=== PATIENT | female | born 1960 | race Caucasian/White ===

== ENCOUNTER 2017-04-15 14:01 | Inpatient (IN) | payer SELFPAY ==
--- NOTE | 2017-04-15 14:58 | PDOC ---
*Physical Exam - Vital Signs Last Vital Signs Temp Pulse Resp BP Pulse Ox 98.3 F 91 H 20 135/80 96 04/15/17 14:07 04/15/17 14:07 04/15/17 14:07 04/15/17 14:07 04/15/17 14:07 ED Treatment Course - LABORATORY CBC & Chemistry Diagram: 04/15/17 15:58 04/15/17 15:58 Medical Decision Making - Medical Decision Making 04/15/17 19:18 Pt seen by the Advanced Practice Provider under my direct supervision Ancillary studies reviewed I agree with plan as outlined by the Advanced Practice Provider *DC/Admit/Observation/Transfer Diagnosis at time of Disposition: Left breast abscess
--- NOTE | 2017-04-15 15:14 | PDOC ---
History of Present Illness - General Chief Complaint: Redness To Affected Area Stated Complaint: INFECTION Time Seen by Provider: 04/15/17 14:32 History Source: Patient Exam Limitations: No Limitations - History of Present Illness Initial Comments: 04/15/17 15:11 56 yr female no past medical history pt has no PMD has had no health care in "many years" states pt presents today with left breast painful, red and swollen. pt denies fever or chills. Pt states both her parents have diabetes. Severity: Yes: moderate Past History - Past Medical History Allergies/Adverse Reactions: Allergies Allergy/AdvReac Type Severity Reaction Status Date / Time No Known Allergies Allergy Verified 04/15/17 14:10 Other medical history: NONE - Family Disease History Family Disease History: Diabetes: Father, Mother - Suicide/Smoking/Psychosocial Hx Smoking History: Never smoked Hx Alcohol Use: No Drug/Substance Use Hx: No Review of Systems - Review of Systems Able to Perform ROS?: Yes Is the patient limited Bulgarian proficient: No Constitutional: No: Symptoms Reported HEENTM: No: Symptoms Reported Respiratory: No: Symptoms reported Cardiac (ROS): No: Symptoms Reported ABD/GI: No: Symptoms Reported : No: Symptoms Reported Musculoskeletal: No: Symptoms Reported Integumentary: Yes: See HPI Neurological: No: Symptoms reported *Physical Exam - Vital Signs Last Vital Signs Temp Pulse Resp BP Pulse Ox 98.3 F 91 H 20 135/80 96 04/15/17 14:07 04/15/17 14:07 04/15/17 14:07 04/15/17 14:07 04/15/17 14:07 - Physical Exam General Appearance: Yes: Nourished, Appropriately Dressed HEENT: positive: EOMI, KIMMIE, Normal ENT Inspection, TMs Normal, Pharynx Normal Neck: positive: Supple Respiratory/Chest: positive: Lungs Clear, Normal Breath Sounds Cardiovascular: positive: Regular Rhythm, Regular Rate Gastrointestinal/Abdominal: positive: Normal Bowel Sounds, Soft Musculoskeletal: positive: Normal Inspection Extremity: positive: Normal Capillary Refill, Normal Inspection, Normal Range of Motion Integumentary: positive: Erythema, Swelling, Other (left breast with aereola red , swollen radiating up the breast surrounding the areola , warm to touch no nipple drainage) Neurologic: positive: Fully Oriented, Alert, Normal Mood/Affect, Normal Response , Motor Strength 5/5 Deep Tendon Reflexes: Tricep (L): 0 ED Treatment Course - LABORATORY CBC & Chemistry Diagram: 04/18/17 07:00 04/18/17 07:00 - RADIOLOGY Radiology Studies Ordered: Category Date Time Status BREAST US LEFT COMPLETE [US] Routine Ultrasound 04/15/17 14:58 Ordered - Consult/PCP Time Called: 18:03 Case discussed with personal care physician: Esteban Martinez Medical Decision Making - Medical Decision Making 04/15/17 15:17 cc: tender, red swollen breast for one week denies chills or fever, neg nvd neg appetite changes or weight loss will check labs, US breast IV fluids, antibiotics admission for breast cellulitus possible abscess case discussed with ER attending and agrees with plan 04/15/17 17:19 US report given by preliminary suggests large fluid collection to left breast. 04/15/17 18:03 04/15/17 18:19 paged as discussed with OFELIA Erickson 04/15/17 18:20 *DC/Admit/Observation/Transfer Diagnosis at time of Disposition: Left breast abscess - Discharge Dispostion Admit: Yes - Referrals
[2017-04-15] MEDS ORDERED: CLINDAMYCIN 600MG PREMIX IVPB 50 ML IVPB ONE ×2 (16:21→16:28)
[2017-04-15 16:22] LABS: BASOPHIL 0.6 % (0-2.0); EOSINOPHIL 1.2 % (0-4.5); MCH 29.4 pg (25.7-33.7); MCHC 33.7 g/dl (32.0-36.0); MEAN CELL VOLUME 87.1 fl (80-96); MEAN PLT VOLUME 11.1 fl (7.5-11.1); NEUTROPHILS 68.3 % (42.8-82.8); PLATELET COUNT 181 K/MM3 (134-434); RDW 12.5 % (11.6-15.6); WHITE BLOOD COUNT 7.9 K/mm3 (4.0-10.0)
[2017-04-15 16:50] LABS: ALBUMIN 3.8 g/dl (3.4-5.0); ALK PHOS 130 U/L (45-117); ANION GAP 6 (8-16); BILIRUBIN,TOTAL 0.5 mg/dL (0.2-1.0); CALCIUM 9.6 mg/dL (8.5-10.1); CO2 28 mmol/L (21-32); CREATININE 0.7 mg/dL (0.55-1.02); SGOT/AST 7 U/L (15-37); SGPT/ALT 22 U/L (12-78); TOT PROT 7.9 g/dl (6.4-8.2)
[2017-04-15 16:55] LABS: GLUCOSE,RANDOM 403 mg/dL (74-106)
[2017-04-15] MEDS ORDERED: SODIUM CHLORIDE 1,000 ML IV STA (16:57)
[2017-04-15] MEDS ORDERED: INSULIN REGULAR HUMAN 100 UNITS/ML *VIAL IVPUSH ONE (17:07)
--- NOTE | 2017-04-15 17:58 | HP ---
CHIEF COMPLAINT: Left breast pain PCP: none HISTORY OF PRESENT ILLNESS: 56 yo F with no significant pmhx presents with one week history of worsening breast pain and swelling. She states that approx 7 days prior to coming to ER she started with a small red induration on left breast. This slowly has expanded and become more red and tender. She describes intermittent sharp non radiating 8/10 left breast pain and swelling. Pain associated with expanding erythema. No alleviating factors. Aggravated by palpation. Has not seen a doctor for appox. 10 years.She also endorses increased urinary frequency and urgency as well bilateral foot pain. She denies fever, chills, trauma, or drainage. Denies CP,MIRAMONTES,SOB, abd. pain, N/V. ER course was notable for: (1)Breast US shows left breast shows large fluid collection (2)Hyperglycemia- glucose 403 (3) Recent Travel:denies PAST MEDICAL HISTORY: abnormal uterine bleeding PAST SURGICAL HISTORY:none Social History: Smoking:never Alcohol:denies Drugs: denies Family History: Both Parents (diabetes) Allergies No Known Allergies Allergy (Verified 04/15/17 14:10) HOME MEDICATIONS: REVIEW OF SYSTEMS CONSTITUTIONAL: Absent: fever, chills, diaphoresis, generalized weakness, malaise, loss of appetite, weight change HEENT: Absent: rhinorrhea, nasal congestion, throat pain, throat swelling, difficulty swallowing, mouth swelling, ear pain, eye pain, visual changes CARDIOVASCULAR: Absent: chest pain, syncope, palpitations, irregular heart rate, lightheadedness , peripheral edema RESPIRATORY: Absent: cough, shortness of breath, dyspnea with exertion, orthopnea, wheezing, stridor, hemoptysis GASTROINTESTINAL: Absent: abdominal pain, abdominal distension, nausea, vomiting, diarrhea, constipation, melena, hematochezia GENITOURINARY:Increased frequency, urgency Absent: dysuria, , hesitancy, hematuria, flank pain, genital pain MUSCULOSKELETAL: left breast pain. Absent: myalgia, arthralgia, joint swelling, back pain, neck pain SKIN: Absent: rash, itching, pallor HEMATOLOGIC/IMMUNOLOGIC: Absent: easy bleeding, easy bruising, lymphadenopathy, frequent infections ENDOCRINE: Absent: unexplained weight gain, unexplained weight loss, heat intolerance, cold intolerance NEUROLOGIC: Absent: headache, focal weakness or paresthesias, dizziness, unsteady gait, seizure, mental status changes, bladder or bowel incontinence PSYCHIATRIC: Absent: anxiety, depression, suicidal or homicidal ideation, hallucinations. PHYSICAL EXAMINATION Vital Signs - 24 hr 04/15/17 14:07 Temperature 98.3 F Pulse Rate 91 H Respiratory 20 Rate Blood Pressure 135/80 O2 Sat by Pulse 96 Oximetry (%) GENERAL: AAOx3, mild distress HEAD: NC/AT EYES: PERRLA,EOMI, sclera anicteric, conjunctiva clear. No lid lag. EARS, NOSE, THROAT:Dry mucous membranes. NECK:Supple, NO JVD LUNGS:CTAB. No wheezes, and no crackles. No accessory muscle use. HEART: tachycardic, normal S1 and S2, no m/g/r. ABDOMEN: Soft, nontender, not distended, normoactive bowel sounds, no guarding, no rebound, no masses. No hepatomegaly or splenomegaly. MUSCULOSKELETAL: Normal range of motion at all joints. No bony deformities or tenderness. No CVA tenderness. UPPER EXTREMITIES: 2+ pulses, warm, well-perfused. No cyanosis. No clubbing. No peripheral edema. LOWER EXTREMITIES: 2+ pulses, warm, well-perfused. No calf tenderness. No peripheral edema. NEUROLOGICAL: Cranial nerves II-XII intact. Normal speech. gait not observed. PSYCHIATRIC: Cooperative. Good eye contact. Appropriate mood and affect. SKIN: left breast with warmth, tenderness , induration and nipple retraction, large area of surrounding erythema 10x8 cm. Laboratory Results - last 24 hr 04/15/17 04/15/17 15:58 15:58 WBC 7.9 RBC 5.16 Hgb 15.2 Hct 45.0 MCV 87.1 MCH 29.4 MCHC 33.7 RDW 12.5 Plt Count 181 MPV 11.1 Neutrophils % 68.3 Lymphocytes % 21.7 Monocytes % 8.2 Eosinophils % 1.2 Basophils % 0.6 Sodium 131 L Potassium 3.8 Chloride 97 L Carbon Dioxide 28 Anion Gap 6 L BUN 10 Creatinine 0.7 Creat Clearance w eGFR > 60 Random Glucose 403 H* Calcium 9.6 Total Bilirubin 0.5 AST 7 L ALT 22 Alkaline Phosphatase 130 H Total Protein 7.9 Albumin 3.8 ASSESSMENT/PLAN: 56 yo F with no significant PMHx presents with left breast pain will be admitted to med/surg for cellulits and left breast abscess requiring IV abx. and drainage. Problem List - Problem (1) Left breast abscess Assessment/Plan: * Will admit to med/surg * Breast surgeon consulted for drainage. * Will continue with Clindamycin and Zosyn - consult ID. * Will need abscess fluid sent for C/S. * NPO after midnight * Coags and PTT/PT-INR * Type and screen (2) Cellulitis Assessment/Plan: * Continue IV ABx as above. * Consult ID (3) Hyperglycemia Assessment/Plan: * ADA diet. * NPO after midnight. * ISS ACHS * BGM ACHS * Hgb A1C pending. Visit type - Emergency Visit Emergency Visit: Yes ED Registration Date: 04/15/17 Care time: The patient presented to the Emergency Department on the above date and was hospitalized for further evaluation of their emergent condition. - New Patient This patient is new to me today: Yes Date on this admission: 04/17/17 - Critical Care Critical Care patient: No
[2017-04-15] MEDS ORDERED: INSULIN SLIDING SCALE (NOVOLOG) 1 VIAL SQ SCH (18:45)
--- NOTE | 2017-04-15 18:49 | PN ---
Teaching Attending Note Name of Resident: Jeffery Flanagan ATTENDING PHYSICIAN STATEMENT I saw and evaluated the patient. I reviewed the resident's note and discussed the case with the resident. I agree with the resident's findings and plan as documented. SUBJECTIVE:56yo F with no PMH presented with L breast swelling and erythema. pain is 8/10 worse on palpation. states it started as small area of erythema that has progressively worsened. denies any trauma to the breast or shaving the area, states never had similar symptoms in the past. has not seen a doctor in many years and never had a mammogram. also notes urinary frequency and urgency and intermittent tingling in her feet. denies CP, SOB, fever, chills, N/V/C/D OBJECTIVE: Last Vital Signs Temp Pulse Resp BP Pulse Ox 98.3 F 91 H 20 135/80 96 04/15/17 14:07 04/15/17 14:07 04/15/17 14:07 04/15/17 14:07 04/15/17 14:07 General NAD CV S1 S2 tachycardic Lungs CTA B/L no wheezing/rales/rhonchi Breast L breast with 2X2 abscess at 12oclock position tender no active drainage warm with surrounding erythema. +retracted nipple R breast nipple normal no nodules or lumps appreciated on R breast (unable to assess on L due to tenderness) HEENT no LN in axillae abdomen soft NT/ND ASSESSMENT AND PLAN: 56 yo F with no PMH presented with L breast tenderness and swelling 1. L breast abscess and surrounding erythema- medicine admission. received clinda in the ER. will add zosyn for broader coverage as pt is very likely diabetic. breast surgeon consulted for I&D. concern for malignancy as nipple is retracted, however this can just be from infection however pt will need mammogram after resolution of symptoms. pain control 2. Hyperglycemia- high suspicion for diabetes given symptoms. check A1c. start BGM, iss. diabetic teaching. will need to discuss in detail lifestyle changes and need for glycemic control 3. peripheral neuropathy- high suspicion for DM. start gabapentin 4. DVT ppx- start lovenox
[2017-04-15] MEDS: SODIUM CHLORIDE 1,000 ML IV SCH ×2 (19:01→23:10)
[2017-04-15] MEDS: PIPERACILLIN/TAZOB 3.375 GM 3.375 GM in DEXTROSE 5%-WATER - 50 ML IVPB SCH (19:01)
[2017-04-15 19:02] LABS: ALLENS TEST POSITIVE; ART PUNCT SITE RIGHT RADIAL; ARTERIAL BLD GAS O2 SATURATION 97.1 % (90-98.9); ARTERIAL BLOOD GAS BASE EXCESS 1.5 meq/l (-2-2); ARTERIAL BLOOD GAS HCO3 24.3 meq/L (22-26); ARTERIAL BLOOD GAS PO2 81.3 mmHg (80-100); ARTERIAL BLOOD GAS pH 7.47 (7.35-7.45); LPM/O2% ROOM AIR; PT. ON O2? NO
[2017-04-15 19:04] LABS: METHEMOGLOBIN 0.4 % (0.4-1.5)
--- NOTE | 2017-04-15 21:22 | HP ---
CHIEF COMPLAINT: left breast pain PCP: none HISTORY OF PRESENT ILLNESS: The patient is a 56 yo f w/ no significant PMH who presents w/ 1 week history of worsening left breast pain, redness and swelling. The patient states that 7 days prior to admission, she noticed a "small red dot" on her left breast. Over the course of the week, the dot grew larger and more indurated and tender. The patient endorses a sharp, non radiating, 8/10 left breast pain associated with worsening erythema and swelling which expanded over time. The pain is worse on palpation and has no alleviating factors. In addition to this, the patient also complains of worsening urinary urgency and frequency as well as bilateral foot pain. The patient has not seen an MD in 10 years. The patient denies chest pain , shortness of breath, fever, chills, N/V/D, abdominal pain, breast trauma or drainage from the affected site. ER course was notable for: (1) LT breast US showing 5cm by 2 cm fluid collection (2) hyperglycemia to 403 (3) Recent Travel: denies PAST MEDICAL HISTORY: -abnormal uterine bleeding PAST SURGICAL HISTORY: Social History: Smoking: never Alcohol: denies Drugs: denies Family History: Diabetes in both parents Allergies No Known Allergies Allergy (Verified 04/15/17 14:10) HOME MEDICATIONS: REVIEW OF SYSTEMS CONSTITUTIONAL: Absent: fever, chills, diaphoresis, generalized weakness, malaise, loss of appetite, weight change HEENT: Absent: rhinorrhea, nasal congestion, throat pain, throat swelling, difficulty swallowing, mouth swelling, ear pain, eye pain, visual changes CARDIOVASCULAR: Absent: chest pain, syncope, palpitations, irregular heart rate, lightheadedness , peripheral edema RESPIRATORY: Absent: cough, shortness of breath, dyspnea with exertion, orthopnea, wheezing, stridor, hemoptysis GASTROINTESTINAL: Absent: abdominal pain, abdominal distension, nausea, vomiting, diarrhea, constipation, melena, hematochezia GENITOURINARY: urinary urgency and frequency Absent: dysuria, hesitancy, hematuria, flank pain, genital pain MUSCULOSKELETAL: LT breast pain Absent: myalgia, arthralgia, joint swelling, back pain, neck pain SKIN: Absent: rash, itching, pallor HEMATOLOGIC/IMMUNOLOGIC: Absent: easy bleeding, easy bruising, lymphadenopathy, frequent infections ENDOCRINE: Absent: unexplained weight gain, unexplained weight loss, heat intolerance, cold intolerance NEUROLOGIC: Absent: headache, focal weakness or paresthesias, dizziness, unsteady gait, seizure, mental status changes, bladder or bowel incontinence PSYCHIATRIC: Absent: anxiety, depression, suicidal or homicidal ideation, hallucinations. PHYSICAL EXAMINATION GENERAL: Awake, alert, and fully oriented, in no acute distress. HEAD: Normal with no signs of trauma. EYES: Pupils equal, round and reactive to light, extraocular movements intact, sclera anicteric, conjunctiva clear. No lid lag. NECK: Normal range of motion, supple, no JVD. LUNGS: Breath sounds equal, clear to auscultation bilaterally. No wheezes, and no crackles. No accessory muscle use. HEART: Regular rate and rhythm, normal S1 and S2 without murmur, rub or gallop. ABDOMEN: Soft, nontender, not distended, normoactive bowel sounds, no guarding, no rebound, no masses. No hepatomegaly or splenomegaly. MUSCULOSKELETAL: Normal range of motion at all joints. No bony deformities or tenderness. No CVA tenderness. UPPER EXTREMITIES: 2+ pulses, warm, well-perfused. No cyanosis. No clubbing. No peripheral edema. LOWER EXTREMITIES: 2+ pulses, warm, well-perfused. No calf tenderness. No peripheral edema. NEUROLOGICAL: Cranial nerves II-XII intact. Normal speech. Normal gait. PSYCHIATRIC: Cooperative. Good eye contact. Appropriate mood and affect. SKIN: Left breast with large area (10x8cm) which is firm and indurated. Area is warm and erythematous. Nipple retraction present. Right breast WNL Laboratory Results - last 24 hr 04/15/17 04/15/17 18:50 18:50 Puncture Site Right radial ABG pH 7.47 H ABG pCO2 at Pt Temp 34.2 L ABG pO2 at Pt Temp 81.3 ABG HCO3 24.3 ABG O2 Sat (Measured) 97.1 ABG O2 Content 18.3 ABG Base Excess 1.5 Deepak Test Positive Carboxyhemoglobin 1.6 Methemoglobin 0.4 Oxygen Flow Rate Room air PEEP 0.0 ASSESSMENT/PLAN: This is a 56 yo f w/ no significant PMH who comes to the ED c/o left breast erythema and swelling for the past 1 week. #Left breast abscess w/ associated cellulitis -Breast surgeon consult for possible drainage -IV zosyn 3.375 Q8H and clindamycin 600mg Q6h -BCX pending -will obtain wound cx on drainage -NPO after midnight -IVF -ID consult -1mg morphine Q4 PRN pain -AM CBC, CMP, MAG, PHOS, coags, type and screen #hyperglycemia likely 2/2 uncontrolled DM -AM HbA1c -BGM ACHS -ISS ACHS #b/l foot pain likely 2/2 diabetic peripheral neuropathy -gabapentin 100mg TID -no swelling, erythema of legs #FEN -NS @ 100 -monitor lytes -diabetic diet, NPO past midnight #Prophylaxsis -SCDs -no GI prophy indicated at this time #dispo -admitted to med-surg for IV ABX Problem List - Problem (1) Cellulitis Code(s): L03.90 - CELLULITIS, UNSPECIFIED Qualifiers: Site of cellulitis: other site Qualified Code(s): L03.818 - Cellulitis of other sites (2) Hyperglycemia Code(s): R73.9 - HYPERGLYCEMIA, UNSPECIFIED (3) Left breast abscess Code(s): N61.1 - ABSCESS OF THE BREAST AND NIPPLE Visit type - Emergency Visit Emergency Visit: Yes ED Registration Date: 04/15/17 Care time: The patient presented to the Emergency Department on the above date and was hospitalized for further evaluation of their emergent condition. - New Patient This patient is new to me today: Yes Date on this admission: 04/15/17 - Critical Care Critical Care patient: No
[2017-04-15] MEDS: GABAPENTIN 100 MG CAPSULE (FP) PO SCH (23:08)
[2017-04-15] MEDS: CLINDAMYCIN 600MG PREMIX IVPB 50 ML IVPB SCH (23:08)
[2017-04-15 23:38] VITALS: BMI 28.8
[2017-04-16] MEDS ORDERED: PIPERACILLIN/TAZOBACTAM 3.375 GM VIAL IVPB ONE (02:09)
[2017-04-16] MEDS ORDERED: DEXTROSE 5%-WATER - 50 ML IVPB ONE (02:10)
[2017-04-16] MEDS: PIPERACILLIN/TAZOB 3.375 GM 3.375 GM in DEXTROSE 5%-WATER - 50 ML IVPB SCH (02:20)
[2017-04-16] MEDS: CLINDAMYCIN 600MG PREMIX IVPB 50 ML IVPB SCH ×2 (03:08→09:54)
[2017-04-16] MEDS: GABAPENTIN 100 MG CAPSULE (FP) PO SCH ×3 (06:04→21:16)
[2017-04-16] MEDS: INSULIN SLIDING SCALE (NOVOLOG) 1 VIAL SQ SCH ×6 (06:04→21:17)
[2017-04-16 09:01] LABS: BASOPHIL 0.5 % (0-2.0); EOSINOPHIL 1.4 % (0-4.5); MCH 29.2 pg (25.7-33.7); MCHC 33.7 g/dl (32.0-36.0); MEAN CELL VOLUME 86.6 fl (80-96); MEAN PLT VOLUME 10.1 fl (7.5-11.1); NEUTROPHILS 68.9 % (42.8-82.8); PLATELET COUNT 141 K/MM3 (134-434); RDW 12.3 % (11.6-15.6); WHITE BLOOD COUNT 7.1 K/mm3 (4.0-10.0)
[2017-04-16 09:24] LABS: INR 1.12 (0.82-1.09); PROTHROMBIN TIME (PATIENT) 12.3 SEC (9.98-11.88)
[2017-04-16 09:27] LABS: ACTIVATED PTT 27.5 SECONDS (26.9-34.4)
[2017-04-16 09:32] LABS: ALBUMIN 2.8 g/dl (3.4-5.0); ALK PHOS 99 U/L (45-117); ANION GAP 7 (8-16); BILIRUBIN,TOTAL 0.6 mg/dL (0.2-1.0); CALCIUM 8.3 mg/dL (8.5-10.1); CO2 26 mmol/L (21-32); CREATININE 0.5 mg/dL (0.55-1.02); GLUCOSE,RANDOM 282 mg/dL (74-106); MAGNESIUM 1.6 mg/dL (1.8-2.4); PHOSPHOROUS 2.5 mg/dL (2.5-4.9); SGOT/AST 11 U/L (15-37); SGPT/ALT 18 U/L (12-78); TOT PROT 6.1 g/dl (6.4-8.2)
--- NOTE | 2017-04-16 10:27 | EKG ---
Test Reason : Blood Pressure : / mmHG Vent. Rate : 090 BPM Atrial Rate : 090 BPM P-R Int : 186 ms QRS Dur : 134 ms QT Int : 414 ms P-R-T Axes : 055 -13 009 degrees QTc Int : 506 ms NORMAL SINUS RHYTHM RIGHT BUNDLE BRANCH BLOCK ABNORMAL ECG NO PREVIOUS ECGS AVAILABLE Confirmed by JUAN JOSE SCHMITT, JERAD ([id number]) on 04/16/2017 10:26:30 AM Referred By: Confirmed By:JERAD INGRAM MD
[2017-04-16] MEDS: morphine CARPU-JECT 2 MG/1 ML DISP.SYRIN IVPUSH PRN ×2 (10:49→21:15)
[2017-04-16] MEDS: SODIUM CHLORIDE 1,000 ML IV SCH ×2 (10:53→19:27)
--- NOTE | 2017-04-16 12:52 | PN ---
Progress Note (short form) - Note Progress Note: ID Full note dictated Microbiology Selected Entries 04/16/17 04/16/17 08:05 10:33 Temperature 98.0 F Pulse Rate 72 Respiratory 16 Rate Blood Pressure 132/77 Laboratory Tests 04/15/17 04/16/17 04/16/17 15:58 07:30 07:30 WBC 7.1 RBC 4.59 Hct 39.8 Plt Count 181 141 D BUN 8 Creatinine 0.5 L D Total Protein 6.1 L D Albumin 2.8 L D Assessment New onset DM witah left breast cellulitis with abscess Plan Needs surgery Vancomycn and Zosyn ESr CRP Lorene SCHMITT Problem List - Problems (1) Left breast abscess Code(s): N61.1 - ABSCESS OF THE BREAST AND NIPPLE (2) Diabetes 1.5, managed as type 2 Code(s): E10.9 - TYPE 1 DIABETES MELLITUS WITHOUT COMPLICATIONS
[2017-04-16] MEDS ORDERED: PIPERACILLIN/TAZOBACTAM 4.5 GM VIAL IVPB ONE ×2 (13:16→17:01)
[2017-04-16] MEDS ORDERED: DEXTROSE 5%-WATER 100 ML IVPB ONE ×2 (13:16→17:02)
[2017-04-16] MEDS: PIPERACILLIN/TAZOB 4.5 GM 4.5 GM in DEXTROSE 5%-WATER 100 ML IVPB SCH ×2 (13:28→17:10)
--- NOTE | 2017-04-16 13:35 | CONS ---
INFECTIOUS DISEASE CONSULTATION DATE OF CONSULTATION: DATE OF DICTATION: 04/16/2017 HISTORY OF PRESENT ILLNESS: This is a 56-year-old [place]er female who was admitted with a 1-week history of progressive worsening left breast pain. It started out as a pimple but became increasingly larger in size and more red and tender over the last week. She denied any preceding history of trauma and has no prior medical history, noting only that on her admission now her blood sugar was 403. She has not been to a doctor for any reason in many years. She has no fever and no chills and denies abdominal pain or other systemic complaints. The ultrasound shows a large breast fluid collection. She is currently on insulin, and I am asked to see her for antibiotic treatment. SOCIAL HISTORY: She denies smoking, alcohol, and HIV status unknown. She is , living in the [place] for many years. FAMILY HISTORY AND REVIEW OF SYSTEMS: Reviewed and noncontributory. PHYSICAL EXAMINATION: General: She was an alert woman in no acute distress. Vital Signs: The temperature was 98, blood pressure 132/77, pulse 78, respirations 16. Neck: Supple. Lungs: Clear to P&A. Heart: S1, S2. Regular rhythm without murmur. Abdomen: Soft, nontender, without hepatosplenomegaly. Chest: Revealed a large breast fluctuant mass involving the superior aspect of the nipple with extending erythema into the left breast, tenderness to touch with a suggestion of fluctuance. DIAGNOSTIC DATA: The white count is 7.9, hemoglobin 15.2, platelets of 181. INR 1.12. BUN 8, creatinine 0.5. Hemoglobin A1c of 13. Total protein 6.1. Albumin 2.8. Ultrasound of the breast was reviewed, dated April 15, showing a complex fluid collection representing abscess in the left breast. ASSESSMENT: New-onset diabetes in this 56-year-old female with large left breast abscess; etiology and origin unclear. Needs to be empirically treated with broad-spectrum antibiotics to include not only Staphylococcus aureus methicillin-resistant Staphylococcus aureus but gram-negative rods and anaerobes aswell. Given the acuteness of the abscess, tuberculosis of the breast would seem much less likely. We will empirically treat with vancomycin and Zosyn. Obtain an HIV test, CRP, and await surgical consultation for anticipated surgical drainage of the abscess. FERNANDO DIAZ M.D. RAMSEY/[id number] MTDD
[2017-04-16 14:51] LABS: HIV 1 & 2 AB NEGATIVE; HIV 1 AGp24 NEGATIVE
[2017-04-16] MEDS ORDERED: PT OWN MED DRAWER 7, Y5N ONE (14:57)
[2017-04-16] MEDS: VANCOMYCIN 1,250 MG in DEXTROSE 5%-WATER - 250 ML IVPB SCH ×2 (15:03→21:16)
--- NOTE | 2017-04-16 15:55 | CONSULT ---
- Consultation REQUESTING PROVIDER: Dr. Sahu CONSULT REQUEST: We have been asked to surgically evaluate this patient for left breast abscess. PCP:Lisseth Kerns HISTORY OF PRESENT ILLNESS: The patient is a 56 yo female who presented to the ER yesterday with complaints of pain/redness to her left breast. She denies any trauma and states that she noticed a bump several days ago and it became red. No fever/chills. She doesn't complete monthly breast exams and her last mammogram was in 2008 and was benign. Overall the breast is less tender, she denies and nipple discharge(bloody or non-bloody)/changes to her skin tissue, axillary pain. PMHx: denies PSHx: denies Allergies Allergy/AdvReac Type Severity Reaction Status Date / Time No Known Allergies Allergy Verified 04/15/17 14:10 REVIEW OF SYSTEMS: CONSTITUTIONAL: Absent: fever, chills CARDIOVASCULAR: Absent: chest pain, palpitations, RI RESPIRATORY: Absent: cough, shortness of breath GASTROINTESTINAL: Absent: abdominal pain, melena GENITOURINARY: Absent: dysuria, hematuria, UTI MUSCULOSKELETAL: Absent: joint swelling, back pain, neck pain SKIN: Absent: changes to breast tissue until last week HEMATOLOGIC/IMMUNOLOGIC: Absent: easy bleeding, easy bruising, lymphadenopathy NEUROLOGIC: Absent: headache,, seizure Present: left toe tingling, no history of ulcers PHYSICAL EXAM: GENERAL: Awake, alert, and fully oriented, in no acute distress. HEAD: Normal with no signs of trauma. EYES: sclera anicteric, conjunctiva clear. NECK: supple without lymphadenopathy. LUNGS: Clear to auscultation bilat anteriorly. No wheezes, and no crackles. No accessory muscle use. HEART: Regular rate and rhythm. No murmurs ABDOMEN: Soft, nontender, not distended. BREAST: Right breast, no palpable masses, no nipple retraction/discharge. No Axillay LAD. Left breast, fluctuant area 12 o'clock position 3x3 cm superior to the nipple which is tender. Erythema surrounding the left breast, No axillary LAD. MUSCULOSKELETAL: No bony deformities or tenderness. No CVA tenderness. UPPER EXTREMITIES: 2+ pulses, warm, well-perfused. No cyanosis. Cap refill <2 seconds. No peripheral edema. LOWER EXTREMITIES: 2+ pulses, warm, well-perfused. No calf tenderness. No peripheral edema. NEUROLOGICAL: Normal speech, gait not observed. PSYCH: Cooperative. Good eye contact. SKIN: Warm, dry, normal turgor. Vital Signs Temperature 98.1 F 04/16/17 14:12 Pulse Rate 77 04/16/17 14:12 Respiratory Rate 18 04/16/17 14:12 Blood Pressure 122/70 04/16/17 14:12 O2 Sat by Pulse Oximetry (%) 96 04/16/17 10:33 Lab Results WBC 7.1 K/mm3 (4.0-10.0) 04/16/17 07:30 RBC 4.59 M/mm3 (3.60-5.2) 04/16/17 07:30 Hgb 13.4 GM/dL (10.7-15.3) D 04/16/17 07:30 Hct 39.8 % (32.4-45.2) 04/16/17 07:30 MCV 86.6 fl (80-96) 04/16/17 07:30 MCHC 33.7 g/dl (32.0-36.0) 04/16/17 07:30 RDW 12.3 % (11.6-15.6) 04/16/17 07:30 Plt Count 141 K/MM3 (134-434) D 04/16/17 07:30 Sodium 136 mmol/L (136-145) 04/16/17 07:30 Potassium 3.7 mmol/L (3.5-5.1) 04/16/17 07:30 Chloride 103 mmol/L (98-107) 04/16/17 07:30 Carbon Dioxide 26 mmol/L (21-32) 04/16/17 07:30 Anion Gap 7 (8-16) L 04/16/17 07:30 BUN 8 mg/dL (7-18) 04/16/17 07:30 Creatinine 0.5 mg/dL (0.55-1.02) L D 04/16/17 07:30 Random Glucose 282 mg/dL (74-106) H D 04/16/17 07:30 Calcium 8.3 mg/dL (8.5-10.1) L 04/16/17 07:30 Blood Type A NEGATIVE 04/16/17 11:35 Antibody Screen Negative 04/16/17 07:30 INR 1.12 (0.82-1.09) 04/16/17 07:30 US: left breast with 6 x 2 x 5 cm collection/abscess in the 12 o clock position Microbiology Blood cultures pending x2 Laboratory Tests 04/16/17 04/16/17 07:30 13:50 Hemoglobin A1c % 13.0 H HIV 1&2 Antibody Screen Negative HIV P24 Antigen Negative Problem List - Problems (1) Left breast abscess Assessment/Plan: 56 yo female with new onset diabetes and left breast abscess Continue IV abx as per ID, she remains afebrile with a normal WBC but there is an area of fluctuance clinically and a collection on US. The patient would benefit from a surgical I&D. Her care was D/w Dr. Sahu and she is scheduled for a I&D in the am. Npo after midnight Code(s): N61.1 - ABSCESS OF THE BREAST AND NIPPLE Visit type - Case Type Case Type: ED Admission - Emergency Emergency Visit: Yes ED Registration Date: 04/15/17 Care time: The patient presented to the Emergency Department on the above date and was hospitalized for further evaluation of their emergent condition. - New patient This patient is new to me today: Yes Date on this admission: 04/16/17 - Critical Care Critical Care patient: No
--- NOTE | 2017-04-16 16:27 | PN ---
Teaching Attending Note Name of Resident: Jeffery Flanagan ATTENDING PHYSICIAN STATEMENT I saw and evaluated the patient. I reviewed the resident's note and discussed the case with the resident. I agree with the resident's findings and plan as documented. SUBJECTIVE:states pain has improved. states no draining from abscess. denies CP , SOB, fever, chills, N/V/C/D OBJECTIVE: Last Vital Signs Temp Pulse Resp BP Pulse Ox 98.1 F 77 18 122/70 96 04/16/17 14:12 04/16/17 14:12 04/16/17 14:12 04/16/17 14:12 04/16/17 10:33 General NAD Breast L breast with 2X2 abscess at 12oclock position tender no active drainage warm with surrounding erythema. +retracted nipple ASSESSMENT AND PLAN: 56 yo F with no PMH presented with L breast tenderness and swelling 1. L breast abscess and surrounding erythema-clinically improved. some retraction in erythema. u/s showing 5.6x2.1x4.7 abscess in L breast. NPO for I& D in the OR in the AM by general surgeon. (breast surgeon not available). abx switched to vanco/zosyn day 1. check vanco trough prior to next dose. will need mammogram as outpatient. pain control 2. New onset DM- A1c 13. diabetic teaching of insulin and BGM. pulpwood cutter consult. counseled on risks of uncontrolled DM including but not limited to early heart disease, loss of vision, kidney disease leading to HD and uncontrolled infections. will need insulin. will hold long acting insulin tonight as NPO and is insulin naive. cont BGM and iss. 3. Obesity- BMI 28 4. peripheral neuropathy- likely due to DM. gabapentin 100mg TID 5. DVT ppx- lovenox
--- NOTE | 2017-04-16 17:41 | PN ---
Physical Exam: SUBJECTIVE: Patient seen and examined at bedside. Patient states she feels better and the erythema and swelling around her breast has gone down. No new complaints. OBJECTIVE: Vital Signs Period Temp Pulse Resp BP Sys/Ward Pulse Ox Last 24 Hr 98 F-98.5 F 72-96 16-20 122-152/70-83 94-98 GENERAL: The patient is awake, alert, and fully oriented, in no acute distress. HEAD: Normal with no signs of trauma. EYES: extraocular movements intact, sclera anicteric, conjunctiva clear. No ptosis. NECK: Trachea midline, full range of motion, supple. LUNGS: Breath sounds equal, clear to auscultation bilaterally, no wheezes, no crackles, no accessory muscle use. HEART: Regular rate and rhythm, S1, S2 without murmur, rub or gallop. ABDOMEN: Soft, nontender, nondistended, normoactive bowel sounds, no guarding, no rebound. EXTREMITIES: 2+ pulses, warm, well-perfused, no edema. NEUROLOGICAL: Cranial nerves II through X grossly intact. Normal speech, gait not observed. PSYCH: Normal mood, normal affect. SKIN: Warm, dry, normal turgor. The erythema and swelling of the left breast is improved since yesterday Laboratory Results - last 24 hr 04/15/17 04/15/17 04/15/17 18:50 18:50 21:40 WBC RBC Hgb Hct MCV MCH MCHC RDW Plt Count MPV Neutrophils % Lymphocytes % Monocytes % Eosinophils % Basophils % PT with INR INR PTT (Actin FS) Puncture Site Right radial ABG pH 7.47 H ABG pCO2 at Pt Temp 34.2 L ABG pO2 at Pt Temp 81.3 ABG HCO3 24.3 ABG O2 Sat (Measured) 97.1 ABG O2 Content 18.3 ABG Base Excess 1.5 Deepak Test Positive Carboxyhemoglobin 1.6 Methemoglobin 0.4 Oxygen Flow Rate Room air PEEP 0.0 Sodium Potassium Chloride Carbon Dioxide Anion Gap BUN Creatinine Creat Clearance w eGFR POC Glucometer [phone] Random Glucose Hemoglobin A1c % Calcium Phosphorus Magnesium Total Bilirubin AST ALT Alkaline Phosphatase C-Reactive Protein Total Protein Albumin HIV 1&2 Antibody Screen HIV P24 Antigen Blood Type Antibody Screen 04/15/17 04/16/17 04/16/17 22:56 06:01 07:30 WBC 7.1 RBC 4.59 Hgb 13.4 D Hct 39.8 MCV 86.6 MCH 29.2 MCHC 33.7 RDW 12.3 Plt Count 141 D MPV 10.1 Neutrophils % 68.9 Lymphocytes % 21.3 Monocytes % 7.9 Eosinophils % 1.4 Basophils % 0.5 PT with INR INR PTT (Actin FS) Puncture Site ABG pH ABG pCO2 at Pt Temp ABG pO2 at Pt Temp ABG HCO3 ABG O2 Sat (Measured) ABG O2 Content ABG Base Excess Deepak Test Carboxyhemoglobin Methemoglobin Oxygen Flow Rate PEEP Sodium Potassium Chloride Carbon Dioxide Anion Gap BUN Creatinine Creat Clearance w eGFR POC Glucometer 277 234 Random Glucose Hemoglobin A1c % Calcium Phosphorus Magnesium Total Bilirubin AST ALT Alkaline Phosphatase C-Reactive Protein Total Protein Albumin HIV 1&2 Antibody Screen HIV P24 Antigen Blood Type Antibody Screen 04/16/17 04/16/17 04/16/17 07:30 07:30 07:30 WBC RBC Hgb Hct MCV MCH MCHC RDW Plt Count MPV Neutrophils % Lymphocytes % Monocytes % Eosinophils % Basophils % PT with INR 12.30 H INR 1.12 PTT (Actin FS) 27.5 Puncture Site ABG pH ABG pCO2 at Pt Temp ABG pO2 at Pt Temp ABG HCO3 ABG O2 Sat (Measured) ABG O2 Content ABG Base Excess Deepak Test Carboxyhemoglobin Methemoglobin Oxygen Flow Rate PEEP Sodium 136 Potassium 3.7 Chloride 103 Carbon Dioxide 26 Anion Gap 7 L BUN 8 Creatinine 0.5 L D Creat Clearance w eGFR > 60 POC Glucometer Random Glucose 282 H D Hemoglobin A1c % Calcium 8.3 L Phosphorus 2.5 Magnesium 1.6 L Total Bilirubin 0.6 AST 11 L D ALT 18 Alkaline Phosphatase 99 D C-Reactive Protein Total Protein 6.1 L D Albumin 2.8 L D HIV 1&2 Antibody Screen HIV P24 Antigen Blood Type A NEGATIVE Antibody Screen Negative 04/16/17 04/16/17 04/16/17 07:30 11:07 11:35 WBC RBC Hgb Hct MCV MCH MCHC RDW Plt Count MPV Neutrophils % Lymphocytes % Monocytes % Eosinophils % Basophils % PT with INR INR PTT (Actin FS) Puncture Site ABG pH ABG pCO2 at Pt Temp ABG pO2 at Pt Temp ABG HCO3 ABG O2 Sat (Measured) ABG O2 Content ABG Base Excess Deepak Test Carboxyhemoglobin Methemoglobin Oxygen Flow Rate PEEP Sodium Potassium Chloride Carbon Dioxide Anion Gap BUN Creatinine Creat Clearance w eGFR POC Glucometer 243 Random Glucose Hemoglobin A1c % 13.0 H Calcium Phosphorus Magnesium Total Bilirubin AST ALT Alkaline Phosphatase C-Reactive Protein Total Protein Albumin HIV 1&2 Antibody Screen HIV P24 Antigen Blood Type A NEGATIVE Antibody Screen 04/16/17 04/16/17 04/16/17 13:50 13:50 14:18 WBC RBC Hgb Hct MCV MCH MCHC RDW Plt Count MPV Neutrophils % Lymphocytes % Monocytes % Eosinophils % Basophils % PT with INR INR PTT (Actin FS) Puncture Site ABG pH ABG pCO2 at Pt Temp ABG pO2 at Pt Temp ABG HCO3 ABG O2 Sat (Measured) ABG O2 Content ABG Base Excess Deepak Test Carboxyhemoglobin Methemoglobin Oxygen Flow Rate PEEP Sodium Potassium Chloride Carbon Dioxide Anion Gap BUN Creatinine Creat Clearance w eGFR POC Glucometer 235 Random Glucose Hemoglobin A1c % Calcium Phosphorus Magnesium Total Bilirubin AST ALT Alkaline Phosphatase C-Reactive Protein 5.7 H Total Protein Albumin HIV 1&2 Antibody Screen Negative HIV P24 Antigen Negative Blood Type Antibody Screen 04/16/17 16:51 WBC RBC Hgb Hct MCV MCH MCHC RDW Plt Count MPV Neutrophils % Lymphocytes % Monocytes % Eosinophils % Basophils % PT with INR INR PTT (Actin FS) Puncture Site ABG pH ABG pCO2 at Pt Temp ABG pO2 at Pt Temp ABG HCO3 ABG O2 Sat (Measured) ABG O2 Content ABG Base Excess Deepak Test Carboxyhemoglobin Methemoglobin Oxygen Flow Rate PEEP Sodium Potassium Chloride Carbon Dioxide Anion Gap BUN Creatinine Creat Clearance w eGFR POC Glucometer 355 Random Glucose Hemoglobin A1c % Calcium Phosphorus Magnesium Total Bilirubin AST ALT Alkaline Phosphatase C-Reactive Protein Total Protein Albumin HIV 1&2 Antibody Screen HIV P24 Antigen Blood Type Antibody Screen Active Medications Generic Name Dose Route Start Last Admin Trade Name Freq PRN Reason Stop Dose Admin Gabapentin 100 mg 04/15/17 22:00 04/16/17 14:00 Neurontin - PO Not Given TID CHLOE Sodium Chloride 1,000 mls @ 100 mls/hr 04/15/17 18:45 04/16/17 10:53 Normal Saline - IV 100 mls/hr ASDIR CHLOE Administration Vancomycin HCl 1,250 mg/ 250 mls @ 250 mls/hr 04/16/17 13:15 04/16/17 15:03 Dextrose IVPB 250 mls/hr BID CHLOE Administration Protocol Piperacillin Sod/Tazobactam 100 mls @ 200 mls/hr 04/16/17 13:15 04/16/17 17:10 Sod 4.5 gm/ Dextrose IVPB 200 mls/hr Q8H-IV CHLOE Administration Protocol Insulin Aspart 1 vial 04/15/17 22:00 04/16/17 16:52 Novolog Vial Sliding Scale - SQ 10 units ACHS CHLOE Administration Protocol Morphine Sulfate 1 mg 04/15/17 18:42 04/16/17 10:49 Morphine Injection - IVPUSH 1 mg Q4H PRN Administration PAIN ASSESSMENT/PLAN: This is a 56 yo f w/ no significant PMH who comes to the ED c/o left breast erythema and swelling for the past 1 week. #Left breast abscess w/ associated cellulitis -Dr. Sahu consulted; will take the patient for I&D tomorrow -IV zosyn 3.375 Q8H increased to 4.5 g Q8H as per ID -clindamycin 600mg Q6h changed to vancomycin 1250mg BID as per ID -BCX pending -will obtain wound cx on drainage -NPO after midnight -IVF -1mg morphine Q4 PRN pain #hyperglycemia likely 2/2 uncontrolled DM -HbA1c 13% -BGM ACHS -ISS ACHS #b/l foot pain likely 2/2 diabetic peripheral neuropathy- resolved -gabapentin 100mg TID -no swelling, erythema of legs #FEN -NS @ 100 -monitor lytes -diabetic diet, NPO past midnight #Prophylaxsis -SCDs -no GI prophy indicated at this time #dispo -admitted to med-surg for IV ABX and I&D Problem List - Problems (1) Cellulitis Code(s): L03.90 - CELLULITIS, UNSPECIFIED Qualifiers: Qualified Code(s): L03.818 - Cellulitis of other sites (2) Hyperglycemia Code(s): R73.9 - HYPERGLYCEMIA, UNSPECIFIED (3) Left breast abscess Code(s): N61.1 - ABSCESS OF THE BREAST AND NIPPLE Visit type - Emergency Visit Emergency Visit: Yes ED Registration Date: 04/15/17 Care time: The patient presented to the Emergency Department on the above date and was hospitalized for further evaluation of their emergent condition. - New Patient This patient is new to me today: No - Critical Care Critical Care patient: No
[2017-04-16] MEDS: ENOXAPARIN NA (PORCINE) 40 MG/0.4 ML DISP.SYRIN SQ SCH (18:32)
--- NOTE | 2017-04-16 18:41 | PN ---
Progress Note (short form) - Note Progress Note: I was called to see patient last night and told the community development manager that I would not be available until this evening. I came to see the patient but she has already been seen by Dr. Sahu and is scheduled for a breast I&D in the AM. I thus did not examine or consult on the patient. Reconsult if there are any concerns.
[2017-04-16] MEDS ORDERED: INSULIN (NOVOLOG) ASPART 100 UNITS/ML 10ML VIAL ONE (20:59)
[2017-04-17] MEDS ORDERED: DEXTROSE 5%-WATER 100 ML IVPB ONE ×3 (01:10→17:26)
[2017-04-17] MEDS ORDERED: PIPERACILLIN/TAZOBACTAM 4.5 GM VIAL IVPB ONE ×3 (01:10→17:25)
[2017-04-17] MEDS: SODIUM CHLORIDE 1,000 ML IV SCH ×2 (01:18→21:16)
[2017-04-17] MEDS: PIPERACILLIN/TAZOB 4.5 GM 4.5 GM in DEXTROSE 5%-WATER 100 ML IVPB SCH ×3 (01:18→17:32)
[2017-04-17] MEDS: GABAPENTIN 100 MG CAPSULE (FP) PO SCH ×3 (06:00→21:15)
[2017-04-17] MEDS: INSULIN SLIDING SCALE (NOVOLOG) 1 VIAL SQ SCH ×4 (06:01→21:16)
[2017-04-17 07:47] LABS: MCHC 33.5 g/dl (32.0-36.0); MEAN CELL VOLUME 86.6 fl (80-96); MEAN PLT VOLUME 10.1 fl (7.5-11.1); PLATELET COUNT 145 K/MM3 (134-434); RDW 12.2 % (11.6-15.6); WHITE BLOOD COUNT 7.1 K/mm3 (4.0-10.0)
[2017-04-17 08:17] LABS: INR 1.14 (0.82-1.09); PROTHROMBIN TIME (PATIENT) 12.6 SEC (9.98-11.88)
[2017-04-17 08:44] LABS: ANION GAP 12 (8-16); CALCIUM 8.9 mg/dL (8.5-10.1); CO2 23 mmol/L (21-32); CREATININE 0.5 mg/dL (0.55-1.02); GLUCOSE,RANDOM 255 mg/dL (74-106)
[2017-04-17] MEDS ORDERED: PT OWN MED DRAWER 7, Y5N ONE ×2 (10:02→21:05)
[2017-04-17] MEDS: ENOXAPARIN NA (PORCINE) 40 MG/0.4 ML DISP.SYRIN SQ SCH (10:12)
[2017-04-17] MEDS: VANCOMYCIN 1,250 MG in DEXTROSE 5%-WATER - 250 ML IVPB SCH ×2 (10:12→21:21)
[2017-04-17] MEDS ORDERED: LIDOCAINE HCL/PF 2% SDV 5ML VIAL ONE (11:05)
[2017-04-17] MEDS ORDERED: MIDAZOLAM HCL 2 MG/2 ML SINGLE DOSE VIAL ONE (11:06)
[2017-04-17] MEDS ORDERED: PROPOFOL 20 ML ONE (11:06)
[2017-04-17] MEDS ORDERED: BUPIVACAINE HCL/PF 0.5% (5MG/ML) 10 ML VIAL ONE (11:08)
[2017-04-17] MEDS ORDERED: LIDOCAINE HCL 1%, 10 MG/ML (20ML VIAL) ONE (11:08)
--- NOTE | 2017-04-17 11:54 | OP ---
Operative Note - Note: Operative Date: 04/17/17 Pre-Operative Diagnosis: left breast abscess Operation: i and d left breast abscess Post-Operative Diagnosis: Same as Pre-op Surgeon: Roby Sahu Anesthesiologist/REPAIR MILLER: Saravanan Randall Anesthesia: General Estimated Blood Loss (mls): 10
--- NOTE | 2017-04-17 15:44 | PN ---
Physical Exam: SUBJECTIVE: Patient seen and examined at bedside. Patient states that the erythematous area continues to shrink. Pain is controlled. OBJECTIVE: Vital Signs Period Temp Pulse Resp BP Sys/Ward Pulse Ox Last 24 Hr 97.5 F-98.7 F 72-103 16-20 102-140/60-79 93-98 GENERAL: The patient is awake, alert, and fully oriented, in no acute distress. HEAD: Normal with no signs of trauma. EYES: extraocular movements intact, sclera anicteric, conjunctiva clear. No ptosis. NECK: Trachea midline, full range of motion, supple. LUNGS: Breath sounds equal, clear to auscultation bilaterally, no wheezes, no crackles, no accessory muscle use. HEART: Regular rate and rhythm, S1, S2 without murmur, rub or gallop. ABDOMEN: Soft, nontender, nondistended, normoactive bowel sounds, no guarding, no rebound. EXTREMITIES: 2+ pulses, warm, well-perfused, no edema. NEUROLOGICAL: Cranial nerves II through X grossly intact. Normal speech, gait not observed. PSYCH: Normal mood, normal affect. SKIN: Warm, dry, normal turgor. The erythema and swelling of the left breast is improved since yesterday Laboratory Results - last 24 hr 04/16/17 04/16/17 04/17/17 16:51 21:10 05:43 WBC RBC Hgb Hct MCV MCH MCHC RDW Plt Count MPV PT with INR INR PTT (Actin FS) Sodium Potassium Chloride Carbon Dioxide Anion Gap BUN Creatinine POC Glucometer 355 255 206 Random Glucose Calcium 04/17/17 04/17/17 04/17/17 06:30 06:30 06:30 WBC 7.1 RBC 4.67 Hgb 13.5 Hct 40.4 MCV 86.6 MCH 29.0 MCHC 33.5 RDW 12.2 Plt Count 145 MPV 10.1 PT with INR 12.60 H INR 1.14 PTT (Actin FS) 28.0 Sodium 137 Potassium 3.8 Chloride 102 Carbon Dioxide 23 Anion Gap 12 BUN 9 Creatinine 0.5 L POC Glucometer Random Glucose 255 H Calcium 8.9 04/17/17 11:07 WBC RBC Hgb Hct MCV MCH MCHC RDW Plt Count MPV PT with INR INR PTT (Actin FS) Sodium Potassium Chloride Carbon Dioxide Anion Gap BUN Creatinine POC Glucometer 251 Random Glucose Calcium Active Medications Generic Name Dose Route Start Last Admin Trade Name Fredyq PRN Reason Stop Dose Admin Acetaminophen/Codeine Phosphate 1 tab 04/17/17 11:51 Tylenol # 3 - PO Q6H PRN FEVER OR PAIN Enoxaparin Sodium 40 mg 04/16/17 17:45 04/17/17 10:12 Lovenox - SQ 40 mg DAILY CHLOE Administration Fentanyl 25 mcg 04/17/17 12:02 Sublimaze Injection - IVPUSH 04/20/17 12:03 [id number] PRN PAIN Gabapentin 100 mg 04/15/17 22:00 04/17/17 13:52 Neurontin - PO 100 mg TID CHLOE Administration Sodium Chloride 1,000 mls @ 100 mls/hr 04/15/17 18:45 04/17/17 01:18 Normal Saline - IV 100 mls/hr ASDIR CHLOE Administration Vancomycin HCl 1,250 mg/ 250 mls @ 250 mls/hr 04/16/17 13:15 04/17/17 10:12 Dextrose IVPB 250 mls/hr BID CHLOE Administration Protocol Piperacillin Sod/Tazobactam 100 mls @ 200 mls/hr 04/16/17 13:15 04/17/17 10:12 Sod 4.5 gm/ Dextrose IVPB 200 mls/hr Q8H-IV CHLOE Administration Protocol Insulin Aspart 1 vial 04/15/17 22:00 04/17/17 11:05 Novolog Vial Sliding Scale - SQ Not Given ACHS CHLOE Protocol Morphine Sulfate 1 mg 04/15/17 18:42 04/16/17 21:15 Morphine Injection - IVPUSH 1 mg Q4H PRN Administration PAIN ASSESSMENT/PLAN: This is a 56 yo f w/ no significant PMH who comes to the ED c/o left breast erythema and swelling for the past 1 week. #Left breast abscess w/ associated cellulitis -Patient s/p I&D -IV zosyn 4.5 g Q8H (Day 3) -vancomycin 1250mg BID (Day2) -BCX negative -wound cx pending -IVF -tylenol #3 Q6 PRN pain #hyperglycemia likely 2/2 uncontrolled DM -HbA1c 13% -BGM ACHS -ISS ACHS -started levemir 10u #b/l foot pain likely 2/2 diabetic peripheral neuropathy- resolved -gabapentin 100mg TID -no swelling, erythema of legs #FEN -NS @ 100 -monitor lytes -diabetic diet #Prophylaxsis -SCDs -no GI prophy indicated at this time #dispo -admitted to med-surg for IV ABX and I&D Problem List - Problems (1) Cellulitis Code(s): L03.90 - CELLULITIS, UNSPECIFIED Qualifiers: Site of cellulitis: other site Qualified Code(s): L03.818 - Cellulitis of other sites (2) Hyperglycemia Code(s): R73.9 - HYPERGLYCEMIA, UNSPECIFIED (3) Left breast abscess Code(s): N61.1 - ABSCESS OF THE BREAST AND NIPPLE Visit type - Emergency Visit Emergency Visit: Yes ED Registration Date: 04/15/17 Care time: The patient presented to the Emergency Department on the above date and was hospitalized for further evaluation of their emergent condition. - New Patient This patient is new to me today: No - Critical Care Critical Care patient: No
--- NOTE | 2017-04-17 15:53 | PN ---
Progress Note, Physician History of Present Illness: S/P I&D L breast abscess No c/o pain No fever/ chills - Current Medication List Current Medications: Active Medications Acetaminophen/Codeine Phosphate (Tylenol # 3 -) 1 tab PO Q6H PRN PRN Reason: FEVER OR PAIN Enoxaparin Sodium (Lovenox -) 40 mg SQ DAILY [facility] Last Admin: 04/17/17 10:12 Dose: 40 mg Fentanyl (Sublimaze Injection -) 25 mcg IVPUSH [id number] PRN PRN Reason: PAIN Stop: 04/20/17 12:03 Gabapentin (Neurontin -) 100 mg PO TID [facility] Last Admin: 04/17/17 13:52 Dose: 100 mg Sodium Chloride (Normal Saline -) 1,000 mls @ 100 mls/hr IV ASDIR CHLOE Last Admin: 04/17/17 01:18 Dose: 100 mls/hr Vancomycin HCl 1,250 mg/ (Dextrose) 250 mls @ 250 mls/hr IVPB BID CHLOE PRN Reason: Protocol Last Admin: 04/17/17 10:12 Dose: 250 mls/hr Piperacillin Sod/Tazobactam (Sod 4.5 gm/ Dextrose) 100 mls @ 200 mls/hr IVPB Q8H-IV CHLOE PRN Reason: Protocol Last Admin: 04/17/17 10:12 Dose: 200 mls/hr Insulin Aspart (Novolog Vial Sliding Scale -) 1 vial SQ ACHS CHLOE PRN Reason: Protocol Last Admin: 04/17/17 11:05 Dose: Not Given - Objective Vital Signs: Vital Signs Temperature 97.7 F 04/17/17 15:31 Pulse Rate 82 04/17/17 15:31 Respiratory Rate 18 04/17/17 15:31 Blood Pressure 140/83 04/17/17 15:31 O2 Sat by Pulse Oximetry (%) 95 04/17/17 14:45 Constitutional: Yes: No Distress Eyes: Yes: Conjunctiva Clear Cardiovascular: Yes: Regular Rate and Rhythm, S1, S2 Respiratory: Yes: CTA Bilaterally Gastrointestinal: Yes: Normal Bowel Sounds, Soft. No: Tenderness Breast(s): Yes: Other (post op dressing L breast) Labs: CBC, BMP 04/17/17 06:30 04/17/17 06:30 INR, PTT INR 1.14 (0.82-1.09) 04/17/17 06:30 Assessment/Plan S/P I&D L breast abscess Await c/s Continue zosyn/ vancomycin
--- NOTE | 2017-04-17 16:30 | PN ---
Teaching Attending Note Name of Resident: Jeffery Flanagan ATTENDING PHYSICIAN STATEMENT I saw and evaluated the patient. I reviewed the resident's note and discussed the case with the resident. I agree with the resident's findings and plan as documented. SUBJECTIVE:pain controlled. denies Cp, SOB< fever, chills OBJECTIVE: Last Vital Signs Temp Pulse Resp BP Pulse Ox 97.7 F 82 18 140/83 95 04/17/17 15:04/17/17 15:04/17/17 15:04/17/17 15:04/17/17 14:45 General NAD Breast L breast with dressing with dried blood ASSESSMENT AND PLAN: 56 yo F with no PMH presented with L breast tenderness and swelling 1. L breast abscess and surrounding erythema-s/p I&D 04/17. pain controlled. on Vanco/Zosyn day 2. will f/u C&S. will need outpatient mammogram. pain control 2. New onset DM- A1c 13. will start levemir tonight 10 units tonight. monitor sugars. titrate to optimize control. 3. Obesity- BMI 28 4. peripheral neuropathy- likely due to DM. gabapentin 100mg TID 5. DVT ppx- lovenox
[2017-04-17] MEDS: ACETAMINOPHEN WITH CODEINE 300MG/30MG TABLET PO PRN (17:42)
[2017-04-17] MEDS ORDERED: INSULIN (NOVOLOG) ASPART 100 UNITS/ML 10ML VIAL ONE (21:05)
[2017-04-17] MEDS ORDERED: INSULIN DETEMIR 100 UNITS/ML MDV SQ SCH (22:00)
[2017-04-18] MEDS ORDERED: PIPERACILLIN/TAZOBACTAM 4.5 GM VIAL IVPB ONE ×3 (01:25→17:07)
[2017-04-18] MEDS ORDERED: DEXTROSE 5%-WATER 100 ML IVPB ONE ×3 (01:25→17:07)
[2017-04-18] MEDS: PIPERACILLIN/TAZOB 4.5 GM 4.5 GM in DEXTROSE 5%-WATER 100 ML IVPB SCH ×3 (01:30→17:09)
[2017-04-18] MEDS: INSULIN SLIDING SCALE (NOVOLOG) 1 VIAL SQ SCH ×6 (06:44→21:26)
[2017-04-18] MEDS: GABAPENTIN 100 MG CAPSULE (FP) PO SCH ×3 (06:45→21:23)
[2017-04-18] MEDS: PIPERACILLIN/TAZOB 3.375 GM/50 ML PRE-DOCKED IVPB SCH (07:58)
[2017-04-18 08:00] LABS: MCH 28.9 pg (25.7-33.7); MCHC 33.3 g/dl (32.0-36.0); MEAN CELL VOLUME 86.8 fl (80-96); MEAN PLT VOLUME 10.3 fl (7.5-11.1); PLATELET COUNT 148 K/MM3 (134-434); RDW 12.2 % (11.6-15.6); WHITE BLOOD COUNT 5.7 K/mm3 (4.0-10.0)
[2017-04-18 08:40] LABS: ANION GAP 7 (8-16); CALCIUM 8.6 mg/dL (8.5-10.1); CO2 28 mmol/L (21-32); CREATININE 0.6 mg/dL (0.55-1.02); GLUCOSE,RANDOM 217 mg/dL (74-106)
[2017-04-18] MEDS: ENOXAPARIN NA (PORCINE) 40 MG/0.4 ML DISP.SYRIN SQ SCH (09:02)
--- NOTE | 2017-04-18 09:20 | PN ---
Progress Note (short form) - Note Progress Note: Post op day#1.S/P I&D of left breast under [place] uneventful.Patient stable and has little pain for which she is on medication No any anesthesia related problem.Patient DC from the anesthesia care.
--- NOTE | 2017-04-18 09:25 | PN ---
Progress Note, Physician History of Present Illness: POD #1 I&D L breast abscess No c/o pain No c/o fever/ chills Afebrile WBC WNL BC (-) Wound c/s pending - Current Medication List Current Medications: Active Medications Acetaminophen/Codeine Phosphate (Tylenol # 3 -) 1 tab PO Q6H PRN PRN Reason: FEVER OR PAIN Last Admin: 04/17/17 17:42 Dose: 1 tab Enoxaparin Sodium (Lovenox -) 40 mg SQ DAILY [facility] Last Admin: 04/18/17 09:02 Dose: 40 mg Fentanyl (Sublimaze Injection -) 25 mcg IVPUSH [id number] PRN PRN Reason: PAIN Stop: 04/20/17 12:03 Gabapentin (Neurontin -) 100 mg PO TID [facility] Last Admin: 04/18/17 06:45 Dose: 100 mg Sodium Chloride (Normal Saline -) 1,000 mls @ 100 mls/hr IV ASDIR [facility] Last Admin: 04/17/17 21:16 Dose: 100 mls/hr Vancomycin HCl 1,250 mg/ (Dextrose) 250 mls @ 250 mls/hr IVPB BID [facility] PRN Reason: Protocol Last Admin: 04/17/17 21:21 Dose: 250 mls/hr Piperacillin Sod/Tazobactam (Sod 4.5 gm/ Dextrose) 100 mls @ 200 mls/hr IVPB Q8H-IV [facility] PRN Reason: Protocol Last Admin: 04/18/17 09:02 Dose: 200 mls/hr Insulin Aspart (Novolog Vial Sliding Scale -) 1 vial SQ ACHS [facility] PRN Reason: Protocol Last Admin: 04/18/17 06:45 Dose: 4 units Insulin Detemir (Levemir Vial) 10 units SQ HS [facility] Last Admin: 04/17/17 21:16 Dose: 10 units - Objective Vital Signs: Vital Signs Temperature 98.0 F 04/18/17 06:00 Pulse Rate 78 04/18/17 06:00 Respiratory Rate 16 04/18/17 06:00 Blood Pressure 128/61 04/18/17 06:00 O2 Sat by Pulse Oximetry (%) 95 04/17/17 21:00 Constitutional: Yes: No Distress Eyes: Yes: Conjunctiva Clear Cardiovascular: Yes: Regular Rate and Rhythm, S1, S2 Respiratory: Yes: CTA Bilaterally Gastrointestinal: Yes: Normal Bowel Sounds, Soft. No: Tenderness Breast(s): Yes: Other (L breast wound with packing in place no erythema/ induration) Labs: CBC, BMP 04/18/17 07:00 04/18/17 07:00 INR, PTT INR 1.14 (0.82-1.09) 04/17/17 06:30 Assessment/Plan S/P I&D L breast abscess POD #1 Await c/s Continue zosyn/ vancomycin
[2017-04-18] MEDS: VANCOMYCIN 1,250 MG in DEXTROSE 5%-WATER - 250 ML IVPB SCH ×2 (10:24→21:23)
--- NOTE | 2017-04-18 10:54 | PN ---
Progress Note (short form) - Note Progress Note: Attending Surgeon POD #1 No c/o VSS AF wound- open and clean w/o d/c; surrounding erythema less IMP: s/p I and D left breast abscess PLAN: LWC; continue antibiotics given significant surrounding cellulitis; await OR cultures. Roby Sahu MD FACS
[2017-04-18] MEDS ORDERED: INSULIN (NOVOLOG) ASPART 100 UNITS/ML 10ML VIAL ONE (11:35)
--- NOTE | 2017-04-18 12:27 | PN ---
Progress Note (short form) - Note Progress Note: asymptomatic. states pain is controlled. denies CP, SOB, fver, chills, Current Medications Generic Name Dose Route Start Last Admin Trade Name Fredyq PRN Reason Stop Dose Admin Acetaminophen/Codeine Phosphate 1 tab 04/17/17 11:51 04/17/17 17:42 Tylenol # 3 - PO 1 tab Q6H PRN Administration FEVER OR PAIN Enoxaparin Sodium 40 mg 04/16/17 17:45 04/18/17 09:02 Lovenox - SQ 40 mg DAILY [facility] Administration Fentanyl 25 mcg 04/17/17 12:02 Sublimaze Injection - IVPUSH 04/20/17 12:03 [id number] PRN PAIN Gabapentin 100 mg 04/15/17 22:00 04/18/17 06:45 Neurontin - PO 100 mg TID [facility] Administration Sodium Chloride 1,000 mls @ 100 mls/hr 04/15/17 18:45 04/17/17 21:16 Normal Saline - IV 100 mls/hr ASDIR [facility] Administration Vancomycin HCl 1,250 mg/ 250 mls @ 250 mls/hr 04/16/17 13:15 04/18/17 10:24 Dextrose IVPB 250 mls/hr BID [facility] Administration Protocol Piperacillin Sod/Tazobactam 100 mls @ 200 mls/hr 04/16/17 13:15 04/18/17 09:02 Sod 4.5 gm/ Dextrose IVPB 200 mls/hr Q8H-IV [facility] Administration Protocol Insulin Aspart 1 vial 04/15/17 22:00 04/18/17 11:38 Novolog Vial Sliding Scale - SQ 6 units ACHS [facility] Administration Protocol Insulin Detemir 10 units 04/17/17 22:00 04/17/17 21:16 Levemir Vial SQ 10 units HS [facility] Administration Last Vital Signs Temp Pulse Resp BP Pulse Ox 98.0 F 78 16 128/61 97 04/18/17 06:00 04/18/17 06:00 04/18/17 09:00 04/18/17 06:00 04/18/17 09:00 General NAD Breast L breast dressing dry and intact spoke with surgeon who states wound has clean base, no discharge CBCD WBC 5.7 K/mm3 (4.0-10.0) 04/18/17 07:00 RBC 4.57 M/mm3 (3.60-5.2) 04/18/17 07:00 Hgb 13.2 GM/dL (10.7-15.3) 04/18/17 07:00 Hct 39.6 % (32.4-45.2) 04/18/17 07:00 MCV 86.8 fl (80-96) 04/18/17 07:00 MCHC 33.3 g/dl (32.0-36.0) 04/18/17 07:00 RDW 12.2 % (11.6-15.6) 04/18/17 07:00 Plt Count 148 K/MM3 (134-434) 04/18/17 07:00 MPV 10.3 fl (7.5-11.1) 04/18/17 07:00 CMP Sodium 138 mmol/L (136-145) 04/18/17 07:00 Potassium 3.4 mmol/L (3.5-5.1) L 04/18/17 07:00 Chloride 103 mmol/L (98-107) 04/18/17 07:00 Carbon Dioxide 28 mmol/L (21-32) D 04/18/17 07:00 Anion Gap 7 (8-16) L 04/18/17 07:00 BUN 7 mg/dL (7-18) D 04/18/17 07:00 Creatinine 0.6 mg/dL (0.55-1.02) 04/18/17 07:00 Creat Clearance w eGFR > 60 (>60) 04/16/17 07:30 Calcium 8.6 mg/dL (8.5-10.1) 04/18/17 07:00 Total Bilirubin 0.6 mg/dL (0.2-1.0) 04/16/17 07:30 AST 11 U/L (15-37) L D 04/16/17 07:30 ALT 18 U/L (12-78) 04/16/17 07:30 Alkaline Phosphatase 99 U/L (45-117) D 04/16/17 07:30 Total Protein 6.1 g/dl (6.4-8.2) L D 04/16/17 07:30 Albumin 2.8 g/dl (3.4-5.0) L D 04/16/17 07:30 Microbiology 04/17/17 12:00 Gram Stain - Final Breast - Left Wound Culture - Preliminary Non Lactose Fermenting Gnb 04/15/17 15:58 Blood Culture - Preliminary Blood - Peripheral Venous NO GROWTH OBTAINED AFTER 48 HOURS, INCUBATION TO CONTINUE FOR 3 DAYS. 04/15/17 15:52 Blood Culture - Preliminary Blood - Peripheral Venous NO GROWTH OBTAINED AFTER 48 HOURS, INCUBATION TO CONTINUE FOR 3 DAYS. ASSESSMENT AND PLAN: 56 yo F with no PMH presented with L breast tenderness and swelling 1. L breast abscess and surrounding erythema-s/p I&D 04/17. Wcx with GNR. can likely d/c vanco. will d/w ID. on Vanco/Zosyn day 3. will f/u C&S. will need outpatient mammogram. pain control 2. New onset DM- A1c 13. increase levemir to 14units tonight. titrate to optimize control. BGm, ISS, diabetic diet 3. hypokalemia- Kcl 40meq 4. Obesity- BMI 28 5. peripheral neuropathy- likely due to DM. gabapentin 100mg TID 6. DVT ppx- lovenox Visit type - Emergency Visit Emergency Visit: Yes ED Registration Date: 04/15/17 Care time: The patient presented to the Emergency Department on the above date and was hospitalized for further evaluation of their emergent condition. - New Patient This patient is new to me today: No - Critical Care Critical Care patient: No - Discharge Referral Referred to [facility] Med P.C.: No
[2017-04-18] MEDS: ACETAMINOPHEN WITH CODEINE 300MG/30MG TABLET PO PRN (21:23)
[2017-04-18] MEDS: INSULIN DETEMIR 100 UNITS/ML MDV SQ SCH (21:24)
[2017-04-19] MEDS ORDERED: DEXTROSE 5%-WATER 100 ML IVPB ONE ×3 (01:41→17:19)
[2017-04-19] MEDS ORDERED: PIPERACILLIN/TAZOBACTAM 4.5 GM VIAL IVPB ONE ×3 (01:41→17:19)
[2017-04-19] MEDS: PIPERACILLIN/TAZOB 4.5 GM 4.5 GM in DEXTROSE 5%-WATER 100 ML IVPB SCH ×3 (01:45→17:28)
[2017-04-19] MEDS: GABAPENTIN 100 MG CAPSULE (FP) PO SCH ×3 (06:09→21:56)
[2017-04-19] MEDS: INSULIN SLIDING SCALE (NOVOLOG) 1 VIAL SQ SCH ×4 (06:09→21:55)
--- NOTE | 2017-04-19 07:28 | PN ---
Physical Exam: SUBJECTIVE: Patient seen and examined OBJECTIVE: Vital Signs Period Temp Pulse Resp BP Sys/Ward Pulse Ox Last 24 Hr 97.7 F-98.8 F 75-82 16-20 107-145/65-80 97-97 GENERAL: The patient is awake, alert, and fully oriented, in no acute distress. HEAD: Normal with no signs of trauma. EYES: PERRL, extraocular movements intact, sclera anicteric, conjunctiva clear. No ptosis. ENT: Ears normal, nares patent, oropharynx clear without exudates, moist mucous membranes. NECK: Trachea midline, full range of motion, supple. LUNGS: Breath sounds equal, clear to auscultation bilaterally, no wheezes, no crackles, no accessory muscle use. HEART: Regular rate and rhythm, S1, S2 without murmur, rub or gallop. ABDOMEN: Soft, nontender, nondistended, normoactive bowel sounds, no guarding, no rebound, no hepatosplenomegaly, no masses. EXTREMITIES: 2+ pulses, warm, well-perfused, no edema. NEUROLOGICAL: Cranial nerves II through XII grossly intact. Normal speech, gait not observed. PSYCH: Normal mood, normal affect. SKIN: Warm, dry, normal turgor, no rashes or lesions noted Laboratory Results - last 24 hr 04/18/17 04/18/17 04/18/17 07:00 07:00 11:30 WBC 5.7 RBC 4.57 Hgb 13.2 Hct 39.6 MCV 86.8 MCH 28.9 MCHC 33.3 RDW 12.2 Plt Count 148 MPV 10.3 Sodium 138 Potassium 3.4 L Chloride 103 Carbon Dioxide 28 D Anion Gap 7 L BUN 7 D Creatinine 0.6 POC Glucometer 267 Random Glucose 217 H Calcium 8.6 Ferritin Cancelled Vitamin B12 Cancelled TSH Cancelled 04/18/17 04/18/17 04/19/17 16:51 21:22 06:09 WBC RBC Hgb Hct MCV MCH MCHC RDW Plt Count MPV Sodium Potassium Chloride Carbon Dioxide Anion Gap BUN Creatinine POC Glucometer 172 210 111 Random Glucose Calcium Ferritin Vitamin B12 TSH Active Medications Generic Name Dose Route Start Last Admin Trade Name Freq PRN Reason Stop Dose Admin Acetaminophen/Codeine Phosphate 1 tab 04/17/17 11:51 04/18/17 21:23 Tylenol # 3 - PO 1 tab Q6H PRN Administration FEVER OR PAIN Enoxaparin Sodium 40 mg 04/16/17 17:45 04/18/17 09:02 Lovenox - SQ 40 mg DAILY [facility] Administration Fentanyl 25 mcg 04/17/17 12:02 Sublimaze Injection - IVPUSH 04/20/17 12:03 [id number] PRN PAIN Gabapentin 100 mg 04/15/17 22:00 04/19/17 06:09 Neurontin - PO 100 mg TID [facility] Administration Vancomycin HCl 1,250 mg/ 250 mls @ 250 mls/hr 04/16/17 13:15 04/18/17 21:23 Dextrose IVPB 250 mls/hr BID [facility] Administration Protocol Piperacillin Sod/Tazobactam 100 mls @ 200 mls/hr 04/16/17 13:15 04/19/17 01:45 Sod 4.5 gm/ Dextrose IVPB 200 mls/hr Q8H-IV [facility] Administration Protocol Insulin Aspart 1 vial 04/15/17 22:00 04/19/17 06:09 Novolog Vial Sliding Scale - SQ Not Given ACHS [facility] Protocol Insulin Detemir 14 units 04/18/17 13:45 04/18/17 21:24 Levemir Vial SQ 14 units HS [facility] Administration ASSESSMENT/PLAN: Problem List - Problems (1) Cellulitis Code(s): L03.90 - CELLULITIS, UNSPECIFIED Qualifiers: Site of cellulitis: other site Qualified Code(s): L03.818 - Cellulitis of other sites (2) Hyperglycemia Code(s): R73.9 - HYPERGLYCEMIA, UNSPECIFIED (3) Left breast abscess Code(s): N61.1 - ABSCESS OF THE BREAST AND NIPPLE
[2017-04-19 08:10] LABS: ANION GAP 9 (8-16); CALCIUM 8.5 mg/dL (8.5-10.1); CO2 26 mmol/L (21-32); CREATININE 0.5 mg/dL (0.55-1.02); GLUCOSE,RANDOM 118 mg/dL (74-106); MAGNESIUM 1.7 mg/dL (1.8-2.4)
[2017-04-19] MEDS: ENOXAPARIN NA (PORCINE) 40 MG/0.4 ML DISP.SYRIN SQ SCH (09:52)
--- NOTE | 2017-04-19 10:15 | DS ---
Physical Exam: SUBJECTIVE: Patient seen and examined at bedside. He feels better today. No events overnight. No new complaints. Pain controlled. OBJECTIVE: Vital Signs Period Temp Pulse Resp BP Sys/Ward Pulse Ox Last 24 Hr 97.3 F-98.8 F 75-82 16-20 107-145/64-80 97 PHYSICAL EXAM GENERAL: The patient is awake, alert, and fully oriented, in no acute distress. HEAD: Normal with no signs of trauma. EYES: extraocular movements intact, sclera anicteric, conjunctiva clear. NECK: Trachea midline, full range of motion, supple. LUNGS: Breath sounds equal, clear to auscultation bilaterally, no wheezes, no crackles, no accessory muscle use. HEART: Regular rate and rhythm, S1, S2 without murmur, rub or gallop. ABDOMEN: Soft, nontender, nondistended, normoactive bowel sounds, no guarding, no rebound. EXTREMITIES: 2+ pulses, warm, well-perfused, no edema. NEUROLOGICAL: Cranial nerves II through X grossly intact. Normal speech, gait not observed. PSYCH: Normal mood, normal affect. SKIN: Warm, dry, normal turgor, no rashes or lesions noted. Surgical site with decreased erythema and no fluctuance. Surgical bandage in place. LABS Laboratory Results - last 24 hr 04/18/17 04/18/17 04/18/17 07:00 11:30 16:51 Sodium 138 Potassium 3.4 L Chloride 103 Carbon Dioxide 28 D Anion Gap 7 L BUN 7 D Creatinine 0.6 POC Glucometer 267 172 Random Glucose 217 H Calcium 8.6 Magnesium Ferritin Cancelled Vitamin B12 Cancelled TSH Cancelled 04/18/17 04/19/17 04/19/17 21:22 06:09 06:20 Sodium 143 Potassium 3.2 L Chloride 108 H Carbon Dioxide 26 Anion Gap 9 BUN 6 L Creatinine 0.5 L POC Glucometer 210 111 Random Glucose 118 H D Calcium 8.5 Magnesium 1.7 L Ferritin Vitamin B12 TSH HOSPITAL COURSE: Date of Admission:04/15/17 The patient is a 56 yo f w/ no significant PMH who presents w/ 1 week history of worsening left breast pain, redness and swelling. In the ED, a breast ultrasound showed a 5cm by 2 cm fluid collection in the left breast. She was also found to be hyperglycemic to 403. She was admitted to Incision and drainage of a left breast abscess. She was treated with Vancomycin and Zosyn. Dr. Sahu with Surgery was consulted. The patient was taken for an incision and drainage on 04/17/2017. Intra-operative cultures grew Serratia Marcescens. The patient was also found to have an HbA1c of 13% and diagnosed with diabetes. She was treated with levemir and an insulin sliding scale. The patient was discharged home on levofloxacin daily for 5 more days as well as prescriptions for levemir, the associated needles and syringes as well as a glucometer and test strips. She was instructed to follow up with a primary care doctor within one week of discharge. She was also instructed to follow up with Dr. Sahu within one week. Date of Discharge: 04/19/17 Minutes to complete discharge: 35 Discharge Summary Reason For Visit: CELLULITIS; ABSCESS LEFT BREAST Current Active Problems Cellulitis (Acute) Diabetes 1.5, managed as type 2 (Acute) Hyperglycemia (Acute) Left breast abscess (Acute) Condition: Improved - Instructions Diet, Activity, Other Instructions: You were admitted for treatment of a breast abscess. You have also been diagnosed with Diabetes. We are sending you home with some new medications. The first is a long acting insulin for your diabetes. It is called levemir and is an injection. You should take 14 units of this medication every day before bedtime. The second new medication is a short acting insulin for your diabetes. It is called novolog and is an injection. You should take this medication according to the following instructions before every meal. You should take your blood sugar before you eat. Do not take this medication without eating. Document your sugars and at what time and how much insulin you give yourself. Bring it to your new primary care doctor this week. You may require further adjustment to your insulin. If the blood sugar is below 150, do not take any short acting insulin. If your blood sugar is between 150 and 200, take 2 units of short acting insulin. If your blood sugar is between 201 and 250, take 4 units of short acting insulin. If your blood sugar is between 251 and 300, take 6 units of short acting insulin. If your blood sugar is between 301 and 350, take 8 units of short acting insulin. If your blood sugar is between 351 and 400, take 10 units of short acting insulin. If your blood sugar is above 400, take 10 units of short acting insulin and call your doctor. If you experience blurry vision, lightheadedness or excessive sweating, this could be signs of hypoglycemia, or low blood sugar. You should eat something and call your doctor. We have referred you to a primary care doctor, Dr. Castillo. You should follow up with him within 1 week of going home. You should also follow up with your surgeon, Dr. Sahu, 1 week after going home. You will also need to get a mammogram once you are discharged home to check your breast. Your doctor can give you a prescription for this test. If you experience fever, chills or if any of your symptoms become worse, please call your doctor or return to the emergency department. You will need to change the dressing on your breast wound from surgery. Change it daily with sterile dressing. Usted fue admitido para el tratamiento de un absceso mamario. María le clifton diagnosticado Diabetes. Le estamos enviando a casa con algunos medicamentos nuevos. La primera es clara insulina de accin prolongada para shea diabetes. Se llama levemir y es clara inyeccin. Debe shawanda 14 unidades de anabel medicamento todos los bell antes de acostarse. El sergio nuevo medicamento es clara insulina de accin corta para shea diabetes. Se llama novolog y es clara inyeccin. Usted debe shawanda anabel medicamento de acuerdo con las siguientes instrucciones antes de cada comida. Debe shawanda shea nivel de azcar en la afshin antes de comer. No tome anabel medicamento sin comer. Si el nivel de azcar en la afshin es inferior a 150, no tome ninguna insulina de accin corta. Si shea nivel de azcar en la afshin est entre 150 y 200, tome 2 unidades de insulina de accin corta. Si shea nivel de azcar en la afshin est entre 201 y 250, tome 4 unidades de insulina de accin corta. Si shea nivel de azcar en la afshin est entre 251 y 300, tome 6 unidades de insulina de accin corta. Si shea nivel de azcar en la afshin est entre 301 y 350, tome 8 unidades de insulina de accin corta. Si shea nivel de azcar en la afshin est entre 351 y 400, tome 10 unidades de insulina de accin corta. Si shea nivel de azcar en la afshin es superior a 400, tome 10 unidades de insulina de accin corta y llame a shea mdico. Si experimenta visin borrosa, aturdimiento o sudoracin excesiva, esto podra ser signos de hipoglucemia o bajo nivel de azcar en la afshin. Usted debe comer algo y llamar a shea mdico. Le hemos referido a un mdico de atencin primaria, Dr. Castillo. Usted debe seguir con l dentro de 1 semana de ir a casa. Tambin debe hacer un seguimiento con shea cirujano, Dr. Sahu, clara semana despus de irse a casa. Tambin necesitar hacerse clara mamografa clara vez que le den de nico a shea casa para revisar shea seno. Shea mdico puede darle clara receta para esta prueba. Si experimenta fiebre, escalofros o si alguno de sumi sntomas empeora, llame a shea mdico o regrese al departamento de emergencias. Usted tendr que cambiar el vendaje en shea herida de mama de la ciruga. Cambiar diariamente con apsito estril. Referrals: Roby Sahu MD [Staff Physician] - Clifford Neville MD [Staff Physician] - (Primary care doctor referral) Disposition: HOME Problem List - Problems (1) Cellulitis Code(s): L03.90 - CELLULITIS, UNSPECIFIED Qualifiers: Qualified Code(s): L03.818 - Cellulitis of other sites (2) Hyperglycemia Code(s): R73.9 - HYPERGLYCEMIA, UNSPECIFIED (3) Left breast abscess Code(s): N61.1 - ABSCESS OF THE BREAST AND NIPPLE This patient is new to me today: No Emergency Visit: Yes ED Registration Date: 04/15/17 Care time: The patient presented to the Emergency Department on the above date and was hospitalized for further evaluation of their emergent condition. Critical Care patient: No - Discharge Referral Referred to [facility] Med P.C.: Yes Physician Referral: Clifford Castillo MD ([facility])
[2017-04-19] MEDS: VANCOMYCIN 1,250 MG in DEXTROSE 5%-WATER - 250 ML IVPB SCH ×2 (10:38→21:54)
--- NOTE | 2017-04-19 13:00 | PN ---
Teaching Attending Note Name of Resident: Jeffery Flanagan ATTENDING PHYSICIAN STATEMENT I saw and evaluated the patient. I reviewed the resident's note and discussed the case with the resident. I agree with the resident's findings and plan as documented. SUBJECTIVE: Pain is controlled No fever OBJECTIVE: Vital Signs Temp 97.3 F L 04/19/17 09:00 Pulse 75 04/19/17 09:00 Resp 20 04/19/17 09:00 BP 138/64 04/19/17 09:00 Pulse Ox 97 04/18/17 21:00 Intake & Output 04/18/17 04/19/17 04/19/17 23:59 11:59 23:59 Intake Total 2450 1100 600 Balance 2450 1100 600 Intake: IV 400 600 Normal Saline - 1,000 ml 400 600 @ 100 mls/hr IV ASDIR [facility] Rx#:[id number] IVPB 350 100 Oral 1700 400 600 Other: Voiding Method Toilet Toilet # Unmeasured Voids Void 2 1 2 Bowel Movement No No Yes # Bowel Movements 1 1 Left breast s/p I&D , dressing is clean and wound is packed CBC, BMP 04/18/17 07:00 04/19/17 06:20 ASSESSMENT AND PLAN: 56 year old female with left breast abscess s/p I&D Wound is still packed Wound cultures grow serratia and ab susceptibility is noted - change to PO antibiotics - needs dressing change and surgery recommendation for OP wound care - D/C home after surgical recommendations are in place
[2017-04-19] MEDS ORDERED: INSULIN (NOVOLOG) ASPART 100 UNITS/ML 10ML VIAL ONE (21:15)
--- NOTE | 2017-04-19 21:26 | PN ---
Physical Exam: SUBJECTIVE: Patient seen and examined. no new complaints. Pain controlled. OBJECTIVE: Vital Signs Period Temp Pulse Resp BP Sys/Ward Pulse Ox Last 24 Hr 97.3 F-98.7 F 73-82 16-20 107-145/64-84 95 GENERAL: The patient is awake, alert, and fully oriented, in no acute distress. HEAD: Normal with no signs of trauma. EYES: extraocular movements intact, sclera anicteric, conjunctiva clear. No ptosis. NECK: Trachea midline, full range of motion, supple. LUNGS: Breath sounds equal, clear to auscultation bilaterally, no wheezes, no crackles, no accessory muscle use. HEART: Regular rate and rhythm, S1, S2 without murmur, rub or gallop. ABDOMEN: Soft, nontender, nondistended, normoactive bowel sounds, no guarding, no rebound. EXTREMITIES: 2+ pulses, warm, well-perfused, no edema. NEUROLOGICAL: Cranial nerves II through X grossly intact. Normal speech, gait not observed. PSYCH: Normal mood, normal affect. SKIN: Warm, dry, normal turgor, no rashes or lesions noted Laboratory Results - last 24 hr 04/18/17 04/19/17 04/19/17 21:22 06:09 06:20 Sodium 143 Potassium 3.2 L Chloride 108 H Carbon Dioxide 26 Anion Gap 9 BUN 6 L Creatinine 0.5 L POC Glucometer 210 111 Random Glucose 118 H D Calcium 8.5 Magnesium 1.7 L 04/19/17 11:17 Sodium Potassium Chloride Carbon Dioxide Anion Gap BUN Creatinine POC Glucometer 250 Random Glucose Calcium Magnesium Active Medications Generic Name Dose Route Start Last Admin Trade Name Fredyq PRN Reason Stop Dose Admin Acetaminophen/Codeine Phosphate 1 tab 04/17/17 11:51 04/18/17 21:23 Tylenol # 3 - PO 1 tab Q6H PRN Administration FEVER OR PAIN Enoxaparin Sodium 40 mg 04/16/17 17:45 04/19/17 09:52 Lovenox - SQ 40 mg DAILY [facility] Administration Fentanyl 25 mcg 04/17/17 12:02 Sublimaze Injection - IVPUSH 04/20/17 12:03 [id number] PRN PAIN Gabapentin 100 mg 04/15/17 22:00 04/19/17 13:36 Neurontin - PO 100 mg TID [facility] Administration Vancomycin HCl 1,250 mg/ 250 mls @ 250 mls/hr 04/16/17 13:15 04/19/17 10:38 Dextrose IVPB 250 mls/hr BID [facility] Administration Protocol Piperacillin Sod/Tazobactam 100 mls @ 200 mls/hr 04/16/17 13:15 04/19/17 17:28 Sod 4.5 gm/ Dextrose IVPB 200 mls/hr Q8H-IV [facility] Administration Protocol Insulin Aspart 1 vial 04/15/17 22:00 04/19/17 17:28 Novolog Vial Sliding Scale - SQ 6 units ACHS [facility] Administration Protocol Insulin Detemir 14 units 04/18/17 13:45 04/18/17 21:24 Levemir Vial SQ 14 units HS [facility] Administration ASSESSMENT/PLAN: This is a 56 yo f w/ no significant PMH who comes to the ED c/o left breast erythema and swelling for the past 1 week. #Left breast abscess w/ associated cellulitis -Patient s/p I&D -IV zosyn 4.5 g Q8H (Day 5) -vancomycin 1250mg BID (Day4) -BCX negative -wound cx growing serratia marcescens -IVF -tylenol #3 Q6 PRN pain -will transition to PO abx as per ID #hyperglycemia likely 2/2 uncontrolled DM -HbA1c 13% -BGM ACHS -ISS ACHS -levemir increased to 10u #b/l foot pain likely 2/2 diabetic peripheral neuropathy- resolved -gabapentin 100mg TID -no swelling, erythema of legs #FEN -no fluids indicated -monitor lytes -diabetic diet #Prophylaxsis -SCDs -no GI prophy indicated at this time #dispo -admitted to med-surg for IV ABX and I&D; for discharge once surgery is in agreement. Problem List - Problems (1) Cellulitis Code(s): L03.90 - CELLULITIS, UNSPECIFIED Qualifiers: Qualified Code(s): L03.818 - Cellulitis of other sites (2) Hyperglycemia Code(s): R73.9 - HYPERGLYCEMIA, UNSPECIFIED (3) Left breast abscess Code(s): N61.1 - ABSCESS OF THE BREAST AND NIPPLE Visit type - Emergency Visit Emergency Visit: Yes ED Registration Date: 04/15/17 Care time: The patient presented to the Emergency Department on the above date and was hospitalized for further evaluation of their emergent condition. - New Patient This patient is new to me today: No - Critical Care Critical Care patient: No
[2017-04-19] MEDS: INSULIN DETEMIR 100 UNITS/ML MDV SQ SCH (21:55)
[2017-04-20] MEDS ORDERED: PIPERACILLIN/TAZOBACTAM 4.5 GM VIAL IVPB ONE (02:38)
[2017-04-20] MEDS ORDERED: DEXTROSE 5%-WATER 100 ML IVPB ONE (02:38)
[2017-04-20] MEDS: PIPERACILLIN/TAZOB 4.5 GM 4.5 GM in DEXTROSE 5%-WATER 100 ML IVPB SCH (02:58)
[2017-04-20] MEDS: INSULIN SLIDING SCALE (NOVOLOG) 1 VIAL SQ SCH ×2 (06:20→11:30)
[2017-04-20] MEDS: GABAPENTIN 100 MG CAPSULE (FP) PO SCH ×2 (06:20→14:35)
[2017-04-20] MEDS ORDERED: PT OWN MED DRAWER 7, Y5N ONE (06:31)
[2017-04-20] MEDS ORDERED: INSULIN (NOVOLOG) ASPART 100 UNITS/ML 10ML VIAL ONE ×2 (06:32→11:23)
--- NOTE | 2017-04-20 08:59 | PN ---
Progress Note, Physician Chief Complaint: ID Post I & D Vancomcycin and Zosyn NO complaints Afebrile - Current Medication List Current Medications: Active Medications Acetaminophen/Codeine Phosphate (Tylenol # 3 -) 1 tab PO Q6H PRN PRN Reason: FEVER OR PAIN Last Admin: 04/18/17 21:23 Dose: 1 tab Enoxaparin Sodium (Lovenox -) 40 mg SQ DAILY [facility] Last Admin: 04/19/17 09:52 Dose: 40 mg Fentanyl (Sublimaze Injection -) 25 mcg IVPUSH [id number] PRN PRN Reason: PAIN Stop: 04/20/17 12:03 Gabapentin (Neurontin -) 100 mg PO TID [facility] Last Admin: 04/20/17 06:20 Dose: 100 mg Vancomycin HCl 1,250 mg/ (Dextrose) 250 mls @ 250 mls/hr IVPB BID [facility]LOE PRN Reason: Protocol Last Admin: 04/19/17 21:54 Dose: 250 mls/hr Piperacillin Sod/Tazobactam (Sod 4.5 gm/ Dextrose) 100 mls @ 200 mls/hr IVPB Q8H-IV [facility]LOE PRN Reason: Protocol Last Admin: 04/20/17 02:58 Dose: 200 mls/hr Insulin Aspart (Novolog Vial Sliding Scale -) 1 vial SQ ACHS [facility]LOE PRN Reason: Protocol Last Admin: 04/20/17 06:20 Dose: Not Given Insulin Detemir (Levemir Vial) 14 units SQ HS [facility] Last Admin: 04/19/17 21:55 Dose: 14 units - Objective Vital Signs: Vital Signs Temperature 97.8 F 04/20/17 06:00 Pulse Rate 71 04/20/17 06:00 Respiratory Rate 16 04/20/17 06:00 Blood Pressure 115/65 04/20/17 06:00 O2 Sat by Pulse Oximetry (%) 95 04/19/17 21:00 Constitutional: Yes: Well Nourished, No Distress HENT: Yes: WNL, Atraumatic Neck: Yes: WNL, Supple Cardiovascular: Yes: Regular Rate and Rhythm, S1, S2. No: Murmur Respiratory: Yes: WNL, Regular, CTA Bilaterally. No: Rales, Rhonchi Gastrointestinal: Yes: WNL, Normal Bowel Sounds, Soft. No: Hepatomegaly, Tenderness, Tenderness, Epigastrium, Tenderness, Rebound, Vomiting Extremities: No: Cold, Cool, Cyanosis Edema: No Integumentary: Yes: Other (Left breast erythema resoloving pack wound less tender) Labs: CBC, BMP 04/18/17 07:00 04/19/17 06:20 INR, PTT INR 1.14 (0.82-1.09) 04/17/17 06:30 Problem List - Problems (1) Left breast abscess Code(s): N61.1 - ABSCESS OF THE BREAST AND NIPPLE (2) Diabetes 1.5, managed as type 2 Code(s): E10.9 - TYPE 1 DIABETES MELLITUS WITHOUT COMPLICATIONS Assessment/Plan Microbiology 04/17/17 12:00 Breast - Left Gram Stain - Final 04/17/17 12:00 Breast - Left Wound Culture - Final Serratia Marcescens 04/15/17 15:58 Blood - Peripheral Venous Blood Culture - Preliminary NO GROWTH OBTAINED AFTER 96 HOURS, INCUBATION TO CONTINUE FOR 1 DAYS. 04/15/17 15:52 Blood - Peripheral Venous Blood Culture - Preliminary NO GROWTH OBTAINED AFTER 96 HOURS, INCUBATION TO CONTINUE FOR 1 DAYS. Laboratory Tests 04/16/17 04/18/17 04/19/17 13:50 07:00 06:20 WBC 5.7 Hgb 13.2 Plt Count 148 BUN 6 L Creatinine 0.5 L HIV 1&2 Antibody Screen Negative HIV P24 Antigen Negative Assessment Diabetic with left breast abscess with cellulitis improving post I& D SERRATIA isolated Plan Stop Iv antibiotics Substitute Levofloxacin 500mg daily for [address] Luis F Paulson MD
--- NOTE | 2017-04-20 09:32 | PN ---
Progress Note (short form) - Note Progress Note: Attending Surgeon POD #3 No c/o; wound care in progress VSS AF Wound left breast open and packed w/o drainage; erythema and superficial epidermolysis resolving; o/w negative Cultures noted; ID note reviewed IMP: s/p I and D left breast abscess PLAN: Surgically stable for d/c to outpatient f/u; may shower BID and cover wound w/ DSD if able; if not will need VNS. Roby Sahu MD FACS
[2017-04-20 09:57] LABS: ANION GAP 6 (8-16); CALCIUM 9.3 mg/dL (8.5-10.1); CO2 29 mmol/L (21-32); CREATININE 0.7 mg/dL (0.55-1.02); GLUCOSE,RANDOM 265 mg/dL (74-106); MAGNESIUM 1.6 mg/dL (1.8-2.4)
[2017-04-20] MEDS: ENOXAPARIN NA (PORCINE) 40 MG/0.4 ML DISP.SYRIN SQ SCH (11:18)
--- NOTE | 2017-04-20 11:44 | OP ---
DATE OF OPERATION: 04/17/2017 PREOPERATIVE DIAGNOSIS: Abscess left breast. POSTOPERATIVE DIAGNOSIS: Abscess left breast. PROCEDURE: Incision and drainage of the left breast abscess. SURGEON: Roby Jolley MD ANESTHESIA: General. OPERATIVE FINDINGS: There was a left breast abscess with surrounding cellulitis and superficial epidermolysis of the skin. The rest of the findings were unremarkable. DESCRIPTION OF PROCEDURE: The patient was placed on the operating room table in the supine position. After the induction of general anesthesia, the patient's left breast was prepped with ChloraPrep and draped in sterile fashion. A time-out was taken. Incision was made with a scalpel over the area of fluctuance, and purulent material drained and sent for culture and sensitivity. The wound was copiously irrigated with 50% saline and 50% hydrogen peroxide. Hemostasis was secured with electrocautery and then the wound was packed with saline-soaked Kerlix gauze. Dry sterile dressings were placed and the procedure terminated at this point and the patient aroused from general anesthesia and transferred to the post anesthesia care unit in stable condition awake and alert. ESTIMATED BLOOD LOSS: Minimal. DRAINS: None. SPECIMENS: Purulent drainage to Microbiology for culture and sensitivity. I, Roby Sahu MD, was physically present in the operating room from the time the patient was placed on the operating room table until she was transferred to the post anesthesia care unit in [place]. Roby Sahu MD [id number] MTDD
[2017-04-20 14:32] VITALS: BP 127/72; PULSE 70; TEMP 98.4
[2017-04-20] MEDS ORDERED: POTASSIUM CHLORIDE ORAL LIQUID 20 MEQ/15 ML PO ONE (15:13)
[2017-04-20] MEDS ORDERED: MAGNESIUM OXIDE 400 MG TABLET (FP) PO ONE (15:13)
--- NOTE | 2017-04-20 15:20 | PN ---
Teaching Attending Note Name of Resident: Jeffery Flanagan ATTENDING PHYSICIAN STATEMENT I saw and evaluated the patient. I reviewed the resident's note and discussed the case with the resident. I agree with the resident's findings and plan as documented. SUBJECTIVE:states pain is controlled. denies CP, SOB, fever, chills, N/V/C/D OBJECTIVE: Last Vital Signs Temp Pulse Resp BP Pulse Ox 98.4 F 70 16 127/72 95 04/20/17 14:04/20/17 14:04/20/17 14:04/20/17 14:04/20/17 10:40 General NAD Breast wound is clean. no drainage noted. minimal bleeding on gauze. area minimally tender ASSESSMENT AND PLAN: 56 yo F with no PMH presented with L breast tenderness and swelling 1. L breast abscess and surrounding erythema-s/p I&D 04/17. Wcx +Serratia. has been on Vanco/Zosyn day 4. will transition to levaquin for additional 5 days. will need to follow up surgeon outpatient. will need outpatient mammogram. pain control 2. New onset DM- A1c 13. on Levamir 14units. cont iss, and levemir. encouraged pt to document sugars each reading and amount of insulin each time and bring to PMD appt. diabetic diet 3. hypokalemia- Kcl 40meq 4. Hypomagnesemai- Mg 800mg 5. Obesity- BMI 28 6. peripheral neuropathy- likely due to DM. gabapentin 100mg TID 7. DVT ppx- lovenox 8. d/c home on levaquin x5days
== END 2017-04-20 17:28 | disposition home or self-care (01) | DRG 363 ==
LOC: JER 14:01 → JERBED 18:01 → J6S 22:44
PROVIDERS: ADMIT Internal Medicine; ATTEND Internal Medicine
PROC: 0H9U0ZX Drainage of Left Breast, Open Approach, Diagnostic (ICD-10-PCS; principal; 2017-04-17 10:30)
DX: N61.1 Abscess of the breast and nipple (principal); E11.42 Type 2 diabetes mellitus with diabetic polyneuropathy; E11.65 Type 2 diabetes mellitus with hyperglycemia; E66.8 Other obesity; Z68.28 Body mass index [BMI] 28.0-28.9, adult; E87.6 Hypokalemia; E83.42 Hypomagnesemia
CPT/HCPCS: 36415; 36600; 71020-TC; 76641-TC-LT; 80048; 80053; 82375; 82803; 83036; 83050; 83735; 84100; 85025; 85027; 85610; 85730; 86140; 86850; 86900; 86901; 87040; 87070; 87186; 87205; 87389; 93005; 93010; 94760; 99285-25